=== PATIENT | male | born 1960 | race Two or more races ===

== ENCOUNTER → 2016-09-08 | Outpatient (CLI) | payer MEDICAID ==
[~2016-09-08] MED LIST: ALDACTONE25 MG PO; ANTACID ULTRA400 MG PO; APRESOLINE50 MG PO; ASPIRIN LO-DOSE81 MG PO; BRILINTA90 MG PO; CORDARONE,PACE200 MG PO; COREG12.5 MG PO; COREG25 MG PO; COZAAR50 MG PO; GLUCOSE4 GM PO; GLUCOTROL5 MG PO; IMDUR30 MG PO; K-TAB ER20 MEQ PO; KEPPRA500 MG PO; LASIX40 MG PO; LEVEMIR FL100 UNIT/1 SUB-Q; LEVEMIR100 UNIT/1 SUB-Q; LIPITOR20 M1 PO; LOPRESSOR50 MG PO; MAG-OX-400(241400 MG PO; MIRALAX17 GM PO; NORCO 5-325 TA1 EACH PO; NORVASC10 MG PO; NORVASC5 MG PO; NOVOLOG100 UNIT/M SUB-Q; ONE TOUCH LANC1 EACH; ONE TOUCH VERI1 EACH; PEPCID20 MG PO; PRAVACHOL40 MG PO; PRINIVIL (ZESTR20 MG PO; PRINIVIL (ZESTRI5 MG PO; PROTONIX40 MG PO; TYLENOL325 MG PO; ZANTAC150 MG PO
[2016-09-08 13:50] LABS: ALBUMIN 3.8 gm/dL (3.5-5.0); CALCIUM 8.6 mg/dL (8.5-10.5); CREATININE 2.9 mg/dL (0.6-1.3); POTASSIUM 4.3 mMol/L (3.7-5.1); TOTAL BILIRUBIN 0.3 mg/dL (0.0-1.5); TOTAL PROTEIN 7.7 g/dL (6.0-8.4)
[2016-09-08 14:15] LABS: ANION GAP 15.3 (10.0-19.0)
== END | disposition disaster alternative care site (69) ==
LOC: LNHI 13:28
PROVIDERS: Internal Medicine Interventional Cardiology
DX: I10 Essential (primary) hypertension (principal); N17.9 Acute kidney failure, unspecified; E78.4 Other hyperlipidemia; I25.10 Atherosclerotic heart disease of native coronary artery without angina pectoris

== ENCOUNTER 2016-11-10 19:17 | Inpatient (IN) | payer MEDICAID ==
[~2016-11-10] VITALS: Ht 157.5 cm; Wt 81.4 kg
--- NOTE | ~2016-11-10 | CON ---
PATIENT'S NAME: JAEL ROBLES [facility] AGE: 56 Y [address] ROOM: [address] [place], [place] [address] LOCATION: GPCU ADMIT DATE: 11/10/2016 Consultation DISCHARGE DATE: FAMILY PHYSICIAN: PHYSICIAN, UNKNOWN ATTENDING PHYSICIAN: TIMO FLORES REFERRING PHYSICIAN: Rolando Andrew MD REFERRING PHYSICIAN: Timo Flores MD REASON FOR CONSULT: Chest pain. HISTORY OF PRESENT ILLNESS: This is a very pleasant male who presents to the emergency room after being sent here from the [facility] due to abnormal lab work. His creatinine was reported at 7.8 with a BUN of 150, and his potassium was 5.7. In addition, he was complaining of mid chest discomfort which he states started about 3 days ago. He states that it is intermittent, not worse with exertion. He carries a history of avu-DT-fpqtylfgi SD and was seen by Dr. Lowery in March. His troponin at that time was greater than 200 x2 values, but because he had sustained a subdural hematoma and underwent a right-sided ventriculostomy to monitor intracranial pressures, he was not studied, was placed on appropriate medication, and instructed to follow up as an outpatient. He did not follow up with Cardiology, nor did he follow up with Neurology. He has reported or admitted that he has been taking a nitroglycerin any time he has chest discomfort and recently ran out of the nitroglycerin. He has not been complaining of increased shortness of breath. He denied orthopnea, PND, or pedal edema. There was no report of palpitations, lightheadedness, or dizziness. His troponin-I now is 0.040 and did increase to 0.146 with a CK-MB of 5.2 to 5.7. These numbers are noted to be in the setting of elevated creatinine. His EKG was showing a regular sinus rhythm with changes noted when compared to the March EKG in the aVL, aVF, V4, V5, and V6 including T-wave inversion and ST depression. He does have a history of LVH as well. PAST MEDICAL HISTORY: 1. Diabetes mellitus. 2. Chronic kidney disease. 3. Essential hypertension. 4. History of gtb-UN-cjmcyvglj myocardial infarction. 5. Hyperlipidemia. 6. History of subdural hematoma, March 2016, post ventriculostomy. 7. Chronic diastolic congestive heart failure with a normal EF. 8. Pancreatitis. [facility] 56 Y [address] ROOM: [id number] [place], [place] [address] LOCATION[facility] ADMIT DATE: 11/10/2016 Consultation DISCHARGE DATE: FAMILY PHYSICIAN: PHYSICIAN, UNKNOWN ATTENDING PHYSICIAN: TIMO FLORES ALLERGIES: NONE TO MEDICATIONS. HOME MEDICATIONS: Difficult to decipher as he does not remember what his medications are, but per [facility], his home medications are: 1. Tylenol 325 mg every 6 hours. 2. Amlodipine 10 mg daily. 3. Atorvastatin 20 mg daily. 4. Glucose 16 mg p.o. for hypoglycemia. 5. Furosemide 40 mg daily. 6. NovoLog insulin 10 units subcu t.i.d. per FlexPen. 7. Levemir 28 units daily. 8. Isosorbide 30 mg every day. 9. Keppra 500 mg b.i.d. 10. Magnesium oxide 400 mg every day. 11. Metoprolol 75 mg b.i.d. 12. Protonix 40 mg every day. SOCIAL HISTORY: He quit smoking in 2014. He smoked 2 packs of cigarettes a day for 40 years. He admits to using marijuana weekly. He does not drink alcohol. FAMILY HISTORY: Father had lung cancer and is . He had an uncle who had a stroke. REVIEW OF SYSTEMS: Per HPI. HEAD: No history of headache. EYES: No blurred vision or double vision. EARS: No problems with hearing. NOSE: No epistaxis or rhinorrhea. MOUTH: No gingival bleeding. THROAT: Denies sore throat, hoarseness, or difficulty swallowing. PULMONARY: Denies cough. GASTROINTESTINAL: Negative for nausea, vomiting, or diarrhea. GENITOURINARY: Positive for acute on chronic kidney failure. MUSCULOSKELETAL: No complaints of arthralgias or myalgias. NEUROLOGIC: Denies numbness, tingling, or feeling off-balance. PSYCHIATRIC: No complaints of depression. PHYSICAL EXAMINATION: GENERAL: His height is 5 feet 2 inches. He weighs 177 pounds with a BMI of 32.4. He is alert and oriented. SKIN: Warm, dry, and pink. [facility]GE: 56 Y [address] ROOM: [address] [address] LOCATION: [facility] ADMIT DATE: 11/10/2016 Consultation DISCHARGE DATE: FAMILY PHYSICIAN: PHYSICIAN, UNKNOWN ATTENDING PHYSICIAN: TIMO FLORES HEENT: Sclerae are clear. There is no xanthoma noted. NECK: Soft and supple. JVD is flat. No carotid bruits. RESPIRATORY: Lung sounds are clear. CARDIOVASCULAR: Regular with normal S1 and S2. EKG is as noted in HPI. ABDOMEN: Soft and nontender. EXTREMITIES: No peripheral edema. No clubbing. No cyanosis. Distal pulses are 2+/4. NEUROLOGICAL: He is alert, has symmetrical facial expression. His gait was not assessed. LABORATORY DATA: Labs today: White count 5.7, hemoglobin 12.4, hematocrit 36.4, and platelets are 192. Glucose 197; BUN 130; creatinine 6.2; sodium 148; potassium 4.3, down from 5.7; chloride 118; and CO2 is 19. Hemoglobin A1c is 7.2. Cholesterol 108, triglycerides 170, HDL 30, and LDL was 44. His UA was normal. ASSESSMENT: 1. Elevated cardiac enzymes in the setting of kidney failure. We will see what his echocardiogram shows today. At some point in time, he will need a left heart catheterization. We will discuss starting anticoagulation such as heparin and aspirin with Dr. Andrew after we get the results of his CT scan ruling out any acute bleed. 2. Acute on chronic kidney failure. Nephrology has been called in. 3. Hypertension. His blood pressure currently is 100/50. He is on nitroglycerin. We will continue with his current medications. The assessment and plan, history of present illness, and physical exam are per Dr. Andrew. Dr. Lowery will take over his care on Sunday. ESTELA STAFFORD APRN FOR MD ANDRES FRANKS/katiel /[id number] d: 11/11/16 1612 t: 12/05/16 1336, CONSULTATION REPORT
--- NOTE | ~2016-11-10 | ENPV ---
Vascular Lower Extremity Vein Mapping Procedure Demographics Patient Name THOMAS MOORE, Date of Study 11/22/2016 JAEL Patient Number [id number] Gender Male Date of 1960 Age 56 Visit Number [id number] Height 62 Accession Number [id number] Weight 177 Referring Filiberto Peña DO Interpreting Gutierrez Chen MD Physician Physician Physician Ordering Filiberto Peña Butcher Apprentice Physician DO Weight Guesser Fadumo Issa BS, RT Conclusions Summary Bilateral greater saphenous veins mapped. Branch at the left proximal greater saphenous in the thigh. Branch at the right mid greater saphenous in the thigh. Branches at the proximal greater saphenous in the calf bilaterally. Procedure Type of Study: Veins:Lower Extremity Vein Mapping, Vein Mapping NH. Indications for Study:Vein mapping and Pre-op for vein harvesting. Appropriate Use Criteria:8 Allergies - No known allergies. Patient Status:Routine. Study Location:Inpatient Portable. Technical Quality:Adequate visualization. Risk Factors History of Disease + + + + !Diagnosis !Date !Comments ! + + + + !Hypertension ! ! ! + + + + !Diabetes ! ! ! + + + + - The patient's risk factor(s) include: renal failure , diabetes mellitus, dyslipidemia, treated arterial hypertension and prior [place] . - The patient has a former tobacco history. - The patient's last creatinine was 3 mg/dl. Velocities are measured in cm/s ; Diameters are measured in cm + ++--------++--------+ !Superficial - Great Saphenous Vein !!Right !!Left ! + ++--------++--------+ !Location !!Diameter!!Diameter! + ++--------++--------+ !Sapheno Femoral Junction !!0.5 !!0.33 ! + ++--------++--------+ !GSV High Thigh !!0.26 !!0.26 ! + ++--------++--------+ !GSV Mid Thigh !!0.25 !!0.22 ! + ++--------++--------+ !GSV Low Thigh !!0.23 !!0.25 ! + ++--------++--------+ !GSV Knee !!0.24 !!0.23 ! + ++--------++--------+ !GSV High Calf !!0.15 !!0.18 ! + ++--------++--------+ !GSV Mid Calf !!0.2 !!0.19 ! + ++--------++--------+ !GSV Low Calf !!0.19 !!0.19 ! + ++--------++--------+ !GSV Ankle !!0.23 !!0.2 ! + ++--------++--------+ Signature dtt: WILL MONIQUE dtlana: 11/22/16 1315 Physician Self Edit
--- NOTE | ~2016-11-10 | CATH ---
Cardiac Diagnostic Report Demographics Patient Name THOMAS MOORE Gender Male JAEL Date of 1960 Age 56 year(s) Patient Number [id number] Date of Study 11/20/2016 Visit Number [id number] Room Number G63[address] [place] [id number] Ht 157.48 cm Wt 80.29 kg Referring Lorrie Marshall MD Primary Physician Physician Performing Mackrra Secondary Physician Physician Melany Diagnostic Yerra Assisting Physician Physician Melany Interventional Physician Research Chemical Engineer Physician Findings and Conclusions Diagnostic Findings and Conclusion L Main: Mild distal tapering LAD: Prox/mid 80%, distal 80% Diagonal: ostial 90% Cx: Mid 100% (in stent restenosis) OM1: ostial 50%, mid 70%, distal 80-90% RCA: mid 80%, PLV: ostial 80-90% PDA: 80-90% Ramus: Ostial/Proximal 80-90% Diagnostic Recommendations CABG recommended for triple vessel disease. Dr. De Los Santos notified. Procedure Description The patient was brought to the diagnostic cardiac catheterization-EP laboratory in the fasting, non-sedated state. Informed consent was obtained in the written and verbal form after the risks and benefits were explained. The patient had no further questions and agreed to proceed. The planned puncture-incision site(s) were shaved and prepped with ChloraPrep and draped in the usual sterile manner. Conscious sedation and pain control medications were delivered by a registered nurse under physician guidance. Surface ECG rhythm, blood pressure measurement, and pulse oximetry were monitored throughout the procedure. Arterial access. The right radial arterial access site was infiltrated with lidocaine. The vessel was entered with the Seldinger technique. A sheath was advanced into the vessel and used for catheter placement. Selective left coronary angiography. A catheter was advanced into the left coronary vessel ostium under Fluoroscopic guidance. Contrast was injected by hand. Images were obtained in multiple projections. Selective right coronary angiography. A catheter was advanced into the right coronary vessel ostium under fluoroscopic guidance. Contrast was injected by hand. Images were obtained in multiple projections. Arterial artery hemostasis was achieved. The patient was transferred to a regular nursing floor via cart accompanied by a nurse. The patient left the laboratory in stable condition. Diagnostic Cath Status: Urgent Procedure Procedure Type Diagnostic procedure:Angiography:, Coronary Angios The procedure was explained in detail to the patient. Risks, complications and alternative treatments were reviewed. Written consent was obtained. Medications Reviewed with Patient prior to Procedure. Angiographic Findings Dominance: Right Cardiac Arteries and Lesion Findings LMCA: Normal (0% Stenosis).Mild distal tapering. LAD: Lesion on Prox LAD: Proximal subsection.80% stenosis . Lesion on Mid LAD: Mid subsection.80% stenosis . Lesion on Dist LAD: Distal subsection.90% stenosis . Lesion on 1st Diag: Ostial.90% stenosis . LCx: There is a previous stent on Mid CX Mid subsection showing occlusion. Lesion on 1st Ob Hazel: Mid subsection.70% stenosis . Lesion on 1st Ob Hazel: Distal subsection.90% stenosis . Comments:diffuse. RCA: Lesion on Mid RCA: Mid subsection.80% stenosis . Lesion on 1st RPL: Ostial.90% stenosis . Lesion on R PDA: 90% stenosis . Ramus: Lesion on Ramus: Proximal subsection.90% stenosis . Lesion on Ramus: Ostial.90% stenosis . Coronary Tree Procedure Data Procedure Date Date: 11/20/2016Start: 09:02 AMEnd: 09:30 AM Entry Locations - Retrograde Percutaneous access was performed through the Right Radial artery (Primary location). A 6 Fr sheath was inserted. Hemostasis was successfully obtained using Mechanical Compression. Closure Comments: 13 ml's in radial band placed by Suleman Hickey. Procedure Medications Order and Administration + + + + + !Time !Medication !Dosage !Route ! + + + + + !11/20/2016 09:10 AM !Radial Verapamil !1.25 mg !I.A. ! + + + + + !11/20/2016 09:10 AM !Radial Nitroglycerin !200 mcg !I.A. ! + + + + + !11/20/2016 09:11 AM !Heparin (ACC_3) !3500 units !I.V. bolus ! + + + + + !11/20/2016 09:10 AM !Versed !1 mg !I.V. ! + + + + + !11/20/2016 09:10 AM !Fentanyl !50 mcg !I.V. ! + + + + + Devices Used - A5 Fr. BS JR 4 Diag. Catheterwas used for:Right coronary angiography. - A5 Fr. BS JL 3.5 Diag. Catheterwas used for:Left coronary angiography. Contrast Material - Isovue 40854 ml Fluoroscopy Time: Diagnostic: 3:24 minutes. Total: 3:24 minutes. Fluoroscopy Dose: Diagnostic: 866 mGy. Total: 866 mGy. Estimated Blood Loss: 10 ml. Medical History Performed Procedures and Imaging Results - No ACC stress or imaging studies were performed. History of Disease + + + + !Diagnosis !Date !Comments ! + + + + !Hypertension ! ! ! + + + + !Diabetes ! ! ! + + + + Allergies - No known allergies. Risk Factors The patient risk factors include:treated hypercholesterolemia, treated hypertension, diabetes mellitus, last creatinine: 3 mg/dl, creatinine clearance: 30.48 ml/min, dyslipidemia, renal failure, former tobacco use and prior OR . Admission Data Admission Date: 11/10/2016 Admission Time: 09:21 PM Admit Source: Emergency department Insurance Payors: Medicaid and None. Admission Medications + +------+------+ +---------+ + + !Medication !Dosage!Times !Last !Last !Administered !Comments ! ! ! !Per !Delivery !Delivery ! ! ! ! ! !Day !Date !Time ! ! ! + +------+------+ +---------+ + + !Aspirin ! ! !11/20/2016 !12:00 AM !Yes ! ! !(any) ! ! ! ! ! ! ! + +------+------+ +---------+ + + !Statin (any)! ! !11/20/2016 !12:00 AM !Yes ! ! + +------+------+ +---------+ + + !Clopidogrel ! ! ! ! !Yes ! ! + +------+------+ +---------+ + + !Nitrates (iv! ! !11/20/2016 !12:00 AM !Yes ! ! !or buccal) ! ! ! ! ! ! ! + +------+------+ +---------+ + + !Beta Álvaro! ! ! ! !Yes ! ! !(any) ! ! ! ! ! ! ! + +------+------+ +---------+ + + Clinical Evaluation Leading to Procedure - The patient's CAD presentation was assessed as: Non-STEMI. - Anti-anginal medications were prescribed during the past two weeks. The medications are: Beta Blockers, Ca channel Blockers and Long Acting Nitrates. Hemodynamics Condition: Rest O2 Consumption: Estimated: 218.36Heart Rate: 77 bpm Pressures (mmHg) +-----+ + !Site !Pressure ! +-----+ + !AO !156/92 (118) ! +-----+ + Shunts Oxygen Values O2 Capacity 144.16 O2 Consumption 218.36 Signatures dtt: MELANY ROMERO dtd: 11/20/16 0902 Physician Self Edit
--- NOTE | ~2016-11-10 | HP ---
PATIENT'S NAME: JAEL ROBLES [facility] AGE: 56 Y [address] ROOM: [address] [place], [place] [address] LOCATION: GPCU ADMIT DATE: 11/10/2016 History & Physical DISCHARGE DATE: FAMILY PHYSICIAN: PHYSICIAN, UNKNOWN ATTENDING PHYSICIAN: CHRIS FLORES DATE OF SERVICE: CHIEF COMPLAINT: On and off chest pain and MARGRET with hyperkalemia and decreased urine output. HISTORY OF PRESENT ILLNESS: This is a 56-year-old Kazakh speaking male who was discharged from our hospital back in March 2016 with right subdural hematoma status post ventriculostomy by Dr. Rodríguez as well as uncontrolled diabetes type 2 with DKA and uncontrolled hypertension, and also found to have NSTEMI, treated medically without heparin due to subdural hematoma at that time. When the patient was discharged, the patient was supposed to follow up with Cardiology and also Neurosurgery to repeat ct head and see if suitable for cardiac cath; however, due to lack of medical insurance, patient lost in followup. Instead, he has been going to [facility] clinics and he said he was given multiple medications and has been compliant most of the time. He just keeps taking them but does not really know which ones are they. The reason why he came here is because he has been noticing decreased urine output in the last few weeks to months with normal appetite and his urine has been concentrated like tea color. In addition, he has been having this substernal chest pain on and off, sometimes at rest, sometimes on exertion, a few months after he was discharged in March 2016. He says that he takes some tablets under the tongue, I suppose it was nitroglycerin, and he gets good relief of pain. Today, chest pain happened again around the morning at rest and sometimes on exertion on and off, but he ran out of the nitroglycerin sublingual tablets, so the chest pain persisted, intensity about 4 to 5 out of 10, localized without radiation. Today, the outpatient lab found him to have severe renal failure with hyperkalemia. Previously, the patient was supposed to see a manager part, but due lack of medical insurance, he did not take the initiative to look for a manager part. Today, due to hyperkalemia and MARGRET and chest pain, the patient was referred here for further care. REVIEW OF SYSTEMS: As mentioned in the history of present illness. All other systems were PATIENT'S NAME: THOMAS MOORE [facility] AGE: 56 Y [address] ROOM: [address] [address] [facility] ADMIT DATE: 11/10/2016 History & Physical DISCHARGE DATE: FAMILY PHYSICIAN: PHYSICIAN, UNKNOWN ATTENDING PHYSICIAN: CHRIS FLORES reviewed and they were negative except for those mentioned in the history of present illness. PAST MEDICAL HISTORY: 1. Hypertension. 2. Diabetes type 2. 3. Hyperlipidemia. 4. NSTEMI back in March 2016, treated medically without cardiac cath and without heparin drip due to history of subdural hematoma at that time. The patient was supposed to follow up with our construction recruiter as an outpatient, but he lost in followup due to his lack of medical insurance. 5. History of subdural hematoma status post ventriculostomy in March 2016. 6. History of chronic diastolic congestive heart failure. ALLERGIES: NONE. HOME MEDICATIONS: The patient does not remember. The list has to be reconciled in the morning by the medical staff before it can be addressed. SOCIAL HISTORY: The patient was a former cigarette smoker; he quit about 2 years ago; he used to smoke about 2 packs per day for 40 years. He denies any illegal drug except occasional marijuana usually once a week. He is a social alcohol drinker, but he denies any alcohol abuse or alcohol withdrawal. PAST SURGICAL HISTORY: Status post right foot surgery in the past due to fracture. FAMILY HISTORY: Father from lung cancer; he was a heavy smoker. Mother had an intracranial hemorrhage. PHYSICAL EXAMINATION: VITAL SIGNS: At the time of evaluation, temperature was 98, heart rate was 68, blood pressure was 134/76, saturation was 98% on room air, and respiration was 14. GENERAL APPEARANCE: The patient is alert and oriented x3. Currently in no acute distress. A very pleasant male. HEENT: Pupils are equally round and reactive to light. Extraocular muscles intact. Anicteric sclerae. Nasal turbinates are normal bilaterally. Dry oral mucosa. NECK: No JVD. CARDIOVASCULAR: Regular rate and rhythm. Normal S1, S2. No murmur, no rubs, PATIENT'S NAME: THOMAS MOORE [facility] AGE: 56 Y [address] ROOM: [id number] [place], [place] [address] [facility] ADMIT DATE: 11/10/2016 History & Physical DISCHARGE DATE: FAMILY PHYSICIAN: PHYSICIAN, UNKNOWN ATTENDING PHYSICIAN: CHRIS FLORES no gallops. RESPIRATORY: Clear to auscultation. No rales, no rhonchi, no wheezing, no crackles. ABDOMEN: Soft, nontender, nondistended, bowel sounds present, and no mass. EXTREMITIES: No edema in the upper or lower extremities. SKIN: No ulcer, no rash, no cyanosis. NEUROLOGIC: Grossly nonfocal. LABORATORY DATA: Troponin 0.040. White blood cells 5.7, hemoglobin 12.4, hematocrit 36.4, platelet 192. Glucose 290. BUN 150, creatinine was 7.8, sodium 139, potassium 5.7, chloride 112, CO2 of 10, calcium 8.2, total protein 7.6, albumin 3.5, AST 9, ALT 25, alkaline phosphatase 92, total bilirubin 0.2, anion gap 22.7, globulin 4.1. Urinalysis negative for UTI. GFR 7. Alcohol level less than 0.01. IMAGING STUDIES: EKG on admission on November 10, 2016, at 8:20 p.m. shows findings of left ventricular hypertrophy, heart rate of 70. Repeat EKG on November 11, 2016, at 12:36 a.m. again shows findings of left ventricular hypertrophy, heart rate of 69, sinus rhythm. The previously done was also sinus rhythm, heart rate of 70. Compared to the prior EKG back on March 31, 2016, shows sinus rhythm, heart rate of 75 beats per minute, with QTc of 489 milliseconds, QRS 108 milliseconds, SD 182 milliseconds. Compared to the prior EKG on May 08, 2016, at 12:56 a.m. shows findings of left ventricular hypertrophy, heart rate of 67. EMERGENCY ROOM COURSE: In the emergency room, the patient was given 1 L of normal saline bolus with an aspirin 325 mg 1 dose. A Arciniega was placed and drained out about 500 mL of a concentrated looking urine. ASSESSMENT AND PLAN: 1. Regarding his anion gap metabolic acidosis secondary to MARGRET on CKD 3: When he was discharged from the hospital back in March 2016, GFR was 45 and creatinine was 1.6. Today, creatinine on admission was 7.8 and GFR was 7. This could be from the prerenal hypovolemia due to elevation in BUN and creatinine as well as PATIENT'S NAME: JAEL ROBLES [facility] AGE: 56 Y [address] ROOM: [id number] [place], [place] [address] [facility] ADMIT DATE: 11/10/2016 History & Physical DISCHARGE DATE: FAMILY PHYSICIAN: PHYSICIAN, UNKNOWN ATTENDING PHYSICIAN: CHRIS FLORES from long-standing diabetes and long-standing hypertension, which both are poorly controlled. EKG showed left ventricular hypertrophy. The plan will be to consult Nephrology in the morning. IV fluids for hydration. I will put a Arciniega catheter to get strict urine output. Get a complete abdominal ultrasound in the morning looking for hydronephrosis. I will also push sodium bicarbonate amps of 50 mEq 3 doses given that his bicarb is 10. I will get sodium bicarbonate tablets, 1 tablet 3 times a day of 650 mg. I will get an ABG right now. If ABG shows that the patient is acidemic, less than 7, I will start him on IV sodium bicarbonate drip. Due to the shortage of the IV solution sodium bicarbonate, right now, I will use the amps push and then oral tablets unless the pH is acidemic less than 7, then we will do the IV sodium bicarbonate drip. For the hyperkalemia, I will get an EKG right now looking for hyperkalemia changes, and to prevent delay, I will give 1 g of IV calcium gluconate and also with IV insulin and IV dextrose and also p.o. Kayexalate. We will be checking another renal panel to see if more treatment is needed for the hyperkalemia. Increase oral intake. We will also check urine electrolytes. Further plan will depend on clinical course. 2. Regarding his hyperkalemia: Refer to #1 for the details. If the patient needs more Kayexalate, I will use Veltassa instead. 3. Regarding his chest pain: I will cycle cardiac enzymes every 6 hours and also get a Cardiology consult in the morning. I will put him n.p.o., get an echo in the morning, and I will get a CT of the brain without contrast to make sure that there is no more residual subdural hematoma in case we need to start him on IV heparin drip per ACS protocol. In addition, we will continue aspirin daily in the morning unless there is still some residual head bleed on CT of the head. In addition, start him on the Lipitor and also on Lopressor and also on nitroglycerin drip titrate for chest pain relief and also on IV morphine p.r.n. and p.o. Ativan p.r.n. EKG in the morning again. Currently, chest pain has gone down to 1/10 intensity. 4. Regarding his history of chronic diastolic congestive heart failure: He is on room air, denies any shortness of breath. I will check a proBNP. The patient is hypovolemic on exam and lab. For now, I will give him IV hydration and avoid diuretics. Further plan depends on clinical course. 5. Regarding his hypertension: Currently, blood pressure is not too bad, it is in the 130s systolic. Continue IV hydration. Avoid diuretics. Avoid ADEEL inhibitors or ARBs. Avoid all nephrotoxic agents. 6. Regarding his diabetes type 2: Check A1c. I will start him on the subcu Levemir 5 units b.i.d. and also put him on the sliding scale low dose while he is eating. I will put him on the subcu Regular insulin q.4 hours mild dose while he is NPO and titrate as needed. PATIENT'S NAME: THOMAS MOORE [facility] AGE: 56 Y [address] ROOM: [place] [address] [facility] ADMIT DATE: 11/10/2016 History & Physical DISCHARGE DATE: FAMILY PHYSICIAN: PHYSICIAN, UNKNOWN ATTENDING PHYSICIAN: CHRIS FLORES 7. Regarding his hyperlipidemia: Continue Lipitor high dose 80 mg daily. 8. He is a full code. 9. Deep vein thrombosis prophylaxis: For now, would wait for the CT of the head first before deciding. Time spent in care on the day of admission 50 minutes where 15 minutes was spent on chart review and the remainder of the time was spent on interview and physical examination and also on counseling. The counseling also includes going over the plan of care with the patient and also addressing all the questions and concerns the patient had, and also I went over the plan of care in detail with the nurse. I answered all the questions to their satisfaction. Further plan will depend on clinical course. MD DEBBI ROBLERO/scott /[id number] D: [id number] T: [id number] HISTORY & PHYSICAL
--- NOTE | ~2016-11-10 | DS ---
PATIENT'S NAME: JAEL ROBLES [facility] AGE: 56 Y [address] ROOM: [address] [place], [place] [address] LOCATION: GPCU ADMIT DATE: 11/10/2016 Discharge Summary DISCHARGE DATE: 11/30/2016 FAMILY PHYSICIAN: Physician, Unknown ATTENDING PHYSICIAN: Timo Jarrett FINAL DIAGNOSES: 1. Acute coronary syndrome. 2. Acute on chronic diastolic congestive heart failure. 3. Acute kidney injury on chronic kidney disease. 4. Hyperkalemia secondary to acute kidney injury. 5. Diabetes mellitus, type 2. 6. Essential hypertension. 7. Metabolic acidosis secondary to acute kidney injury. 8. History of seizure. 9. Dyslipidemia. 10. Anemia of chronic disease. 11. Coronary artery disease. PROCEDURES: 1. He had a left heart catheterization by Dr. Lowery on November 20. 2. He had a seven-vessel CABG with Dr. De Los Santos on November 23, 2016. HISTORY OF PRESENT ILLNESS: Please see the history and physical dictated by Dr. Jarrett for details of admission. In short, the patient presented to the emergency room after [facility] with abnormal laboratory. He was noted to have a creatinine of 7.8, and was noted to be acidotic. He also at that time did state that he had been having mild chest pain that had started three days prior to admission. LABORATORY DATA: On admission, sodium 148 most prior to discharge was 139; potassium on admission was 5.7, it did come down and remained relatively stable, it did get elevated again on November 23 and was up to 6.4, most prior to discharge was 4.7; chloride on admission was 112, got as high as 118, and at discharge is 108; BUN on admission was 150, it did go down and at discharge was 44; and creatinine on admission was 7.8, at discharge was 3.3, in the ten days prior to discharge, it was in the 3 to 3.8 range. Cholesterol was 108, HDL was 30, and LDL was 44. Troponin on admission was 140 and did decline. His total iron-binding capacity was 213 and iron was 61. Hemoglobin A1c was 7.2. Parathyroid intact was 145.9. White blood cell count on admission was 5.7 with a hemoglobin of 12.4, hematocrit of 36.4, and platelet count of 192. Hemoglobin during the hospital stay was predominantly in the 10 range; on the , it got as low as 8.4, and most prior to discharge was 9.7. The c-ANCA and p-ANCA were negative. Urinalysis on admission with 100 protein and 50 glucose. PATIENT'S NAME: JAEL ROBLES [facility] AGE: 56 Y [address] ROOM: [place] [address] LOCATION: GPCU ADMIT DATE: 11/10/2016 Discharge Summary DISCHARGE DATE: 11/30/2016 FAMILY PHYSICIAN: Physician, Unknown ATTENDING PHYSICIAN: Timo Jarrett DIAGNOSTIC STUDIES: CT scan of the head on admission was negative for bleed. Ultrasound of the kidney on admission showed that he had normal size kidneys. Chest x-rays were followed throughout the hospital stay. CARDIOVASCULAR DATA: An echocardiogram done on admission showed that his ejection fraction was 50% to 55%. He had meyvyuyq-kb-rxylbe concentric left ventricular hypertrophy. He had vrgr-cx-ehfodwcn aortic regurgitation. The valve was moderately sclerotic. Carotid Dopplers did not show any significant blockage. Pulmonary function tests showed normal lung function. HOSPITAL COURSE: The patient was admitted with the diagnoses of acute renal failure with hyperkalemia and chest pain. He was given aggressive IV hydration. He was given IV calcium, started on Lopressor, and also given sodium bicarbonate. A CT scan of the head was done to rule out a stroke. The patient was given IV nitroglycerin to help control the chest pain. Cardiology was consulted to see the patient. The patient was started on Levemir and sliding-scale insulin. The question was whether this is a non-STEMI. It was felt that this was an acute coronary syndrome. Nephrology was asked to see him. They were familiar with him from previous hospitalization. His kidney function and electrolytes did improve. It was felt that he needed a heart catheterization, but the thought was that they would wait for a while for his kidney function to recover. The plan was for this to be done on November 20. Nephrology did do studies to evaluate for vasculitis. His kidney function was monitored and maximized. Neurology was asked to see him because of his history of subdural hematoma bout and long-term anticoagulation. The patient did overall improve his kidney function. His creatinine did get down in the 2 to 3 range. His blood pressures did come under better control. His blood sugars were controlled as well. The patient was started on Plavix once he was cleared by Neurology. The patient did go to the blood and plasma laboratory assistant on the . He was pre-dosed with Mucomyst. Please see Dr. Lowery's blood and plasma laboratory assistant report. At that time, it was determined that he did need to have a bypass. Dr. De Los Santos did see him. There were a few days between catheterization and surgery in order to monitor the kidney function and to make sure everything was stable. The patient was taken to the OR on the for bypass. Please see the note dictated by Dr. De Los Santos for details. Postoperatively, he was in the ICU for approximately 36 hours, and then he was transferred to floor. He was put on the routine medications of amiodarone and was given IV insulin to control his blood sugars. We were able to take him PATIENT'S NAME: AILYN ROBLESO [facility] AGE: 56 Y [address] ROOM: [place] [address] LOCATION: GPCU ADMIT DATE: 11/10/2016 Discharge Summary DISCHARGE DATE: 11/30/2016 FAMILY PHYSICIAN: , Unknown ATTENDING PHYSICIAN: Timo Jarrett off the IV insulin and started him on oral medications. He continued to improve. His kidney function stabilized and it was felt that he was stable for discharge. During the hospital stay, we did do a significant amount of work with his diabetes, and the diabetic educators did work with him. It was felt that he was stable for discharge. DISCHARGE INSTRUCTIONS: Have a diabetic renal diet. He is to have sternal precautions. See Dr. Mcgregor in seven to ten days; Dr. Lowery and Dr. De Los Santos on December 14. He was advised to do no pulling, pushing, or lifting greater than ten pounds until January 04. Cardiac Rehab will contact him, and he was told that he could shower. MEDICATIONS: 1. Lasix 40 mg daily. 2. Atorvastatin 20 mg at bedtime. 3. Magnesium oxide 400 mg daily. 4. Tylenol 650 mg every six hours. 5. Aspirin 81 mg daily. 6. Coreg 12.5 mg twice daily. 7. Amiodarone 200 mg twice daily. 8. Amlodipine 5 mg daily. 9. NovoLog insulin 4 units subcutaneously three times daily with meals. 10. Levemir 18 units at bedtime. 11. Keppra 500 mg twice daily. 12. MiraLAX 17 g at bedtime. 13. [place] 5/325 one every 4 hours as needed. He is to check his sugars four times daily. OVERALL PROGNOSIS AT DISCHARGE: Guarded. There was some concern about ability to continue to get medications and for followup. GAY HOUGH MD LAW/modl /[id number] CC: MD Melany Guardado MD [facility] 56 [facility] [address] ROOM: [place] [address] [facility] AD[facility] DATE: 11/10/2016 Discharge Summary DISCHARGE DATE: 11/30/2016 FAMILY PHYSICIAN: Physician, Unknown ATTENDING PHYSICIAN: Timo Jarrett DO d: 12/01/16 0352 t: 12/04/16 1426, DISCHARGE SUMMARY
--- NOTE | ~2016-11-10 | CON ---
[facility]GE[facility] 56 Y [address] ROOM: [place] [address] LOCATION: GPCU ADMIT DATE: 11/10/2016 Consultation DISCHARGE DATE: FAMILY PHYSICIAN: PHYSICIAN, UNKNOWN ATTENDING PHYSICIAN: TIMO FLORES DATE OF CONSULTATION: 11/11/2016 REFERRING PHYSICIAN: Rolando Andrew MD NEPHROLOGY CONSULTATION NOTE REQUESTING PHYSICIAN: Timo Flores MD REASON FOR CONSULTATION: Elevated BUN and creatinine. HISTORY OF PRESENT ILLNESS: The patient is a 56-year-old, male with a history of diabetes for several years. He denies any retinopathy or neuropathy. He also has a history of hypertension. He was admitted to the hospital in March with a rzb-XO-cihlyuewl NH and at that time, his creatinine was between 1.3 and 1.6. His creatinine went up to 2.9 in August of 2016. He got admitted to the hospital yesterday with chest pain, and patient also had poor appetite for several days. Yesterday, his creatinine was up to 7.8. He did have hydration overnight and now the creatinine is 6.2. I have been asked to see him for a Nephrology consultation because of his elevated creatinine. The patient denies taking any nonsteroidals or PACKER-2 inhibitors. Outpatient medications does include lisinopril 20 mg a day and Lasix 80 mg a day. REVIEW OF SYSTEMS: GENERAL: He denies any fever or chills. HEENT: He denies any sore throat or sinus congestion. CARDIOVASCULAR: He has some chest pain. RESPIRATORY: Denies shortness of breath, cough, or wheezing. GASTROINTESTINAL: Denies any abdominal pain. He has poor appetite. GENITOURINARY: He noticed decreased urine output. No dysuria. MUSCULOSKELETAL: Denies any joint pain or swelling. SKIN: Denies any rash or pruritus. ALLERGIC/IMMUNOLOGIC: Denies any allergies or hay fever. LYMPHATIC/HEMATOLOGIC: Denies any lymph node enlargement or easy bruising. Denies any heat or cold intolerance. PSYCHIATRIC: Denies any sadness, crying spells, poor concentration, or panic attacks. [facility] AGE: 56 Y [address] ROOM: [place] [address] LOCATION: GPCU ADMIT DATE: 11/10/2016 Consultation DISCHARGE DATE: FAMILY PHYSICIAN: PHYSICIAN, UNKNOWN ATTENDING PHYSICIAN: TIMO FLORES ALLERGIES: NO KNOWN DRUG ALLERGIES. CURRENT MEDICATIONS: 1. Lasix 80 mg a day. 2. Lisinopril 20 mg a day. 3. Spironolactone 25 mg twice a day. 4. Carvedilol 6.25 mg twice a day. PAST MEDICAL HISTORY: 1. Diabetes mellitus. 2. Hyperlipidemia. 3. Hypertension. 4. Uox-YD-egxnlikbq NH. 5. Subdural hematoma. 6. Chronic diastolic dysfunction of the heart. PAST SURGICAL HISTORY: Status post right foot surgery due to fracture. SOCIAL HISTORY: The patient lives at home in [place]. He has 80 pack-year history of smoking. Quit smoking about two years ago. Denies any illegal drug use. 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 FAMILY HISTORY: No family history of kidney disease or dialysis. PHYSICAL EXAMINATION: GENERAL APPEARANCE: A 56-year-old, male, sitting on the hospital bed not in acute distress. VITAL SIGNS: Temperature 98.4, pulse 76, and systolic blood pressure 129 and diastolic 67. HEENT: Head is normocephalic. Pupils are round and equal. Normal eyelid and conjunctivae. Oral cavity clear. Moist mucosa. NECK: Trachea is central. No thyromegaly. Unable to evaluate jugular venous pulsation. HEART: Sounds are audible in all the areas without any gallop or murmur. There is no pericardial rub. Pulse . LUNGS: Bilaterally clear to auscultate. No intercostal retraction. ABDOMEN: Obese, soft, and nontender. Cannot palpate any liver or spleen. EXTREMITIES: He has no clubbing or cyanosis. NEUROLOGIC: He is alert and oriented x3 and grossly nonfocal. MUSCULOSKELETAL: No joint swelling or tenderness. SKIN: No sign of vasculitis. PATIENT'S NAME: THOMAS MOORE [facility] AGE: 56 Y [address] ROOM: [address] [place], [place] [address] LOCATION: GPCU ADMIT DATE: 11/10/2016 Consultation DISCHARGE DATE: FAMILY PHYSICIAN: PHYSICIAN, UNKNOWN ATTENDING PHYSICIAN: TIMO FLORES LYMPHATICS: Did not examine lymphatics. HIGHER PSYCHIATRIC FUNCTION: Examined through the patient's grandson and he seems to have good memory and speech. LABORATORY DATA: WBC 5.7, hemoglobin 12.5, hematocrit 36.4, and platelet count 192 . Glucose 197, BUN of 130, creatinine of 6.2, sodium 148, potassium 4.8, chloride 118, bicarbonate of 19, calcium 7.9, and phosphorus was 6.0. ASSESSMENT: 1. Acute on chronic kidney injury. The patient had a creatinine of 1.2 to 1.6 in March 2016 and went up to 2.9 in August of 2016. The patient may have a background of diabetic nephropathy. 2. Mild hypernatremia. 3. History of hyperkalemia. 4. Metabolic acidosis. 5. Anion gap acidosis. 6. Diabetes mellitus. 7. Hyperphosphatemia. PLAN: Creatinine has improved from 7.8 to 6.2 with hydration, but I cannot rule out the possibility of obstructive uropathy. I will repeat his renal ultrasound to make sure that he is not on hydronephrosis. I will decrease his IV fluids and change the fluids to half-normal saline given he is developing hypernatremia. His bicarbonate level has improved to 19. Does have hyperphosphatemia due to diminished glomerular filtration rate. The patient does have urine protein and I am going to check 24-hour urine for protein and immunoelectrophoresis. If he has significant proteinuria, then I will order serologies. Did advise the patient not to take any nonsteroidals or PACKER-2 inhibitors. I will see him every morning with a renal panel. I would like to thank Dr. Flores for allowing me to participate in this patient's care. M MD NAMAN GLEASON/scott /[id number] d: 11/11/16 1641 t: 11/14/16 1106, CONSULTATION REPORT
--- NOTE | ~2016-11-10 | ENPV ---
Carotid Duplex Study Demographics Patient Name THOMAS MOORE, Date of Study 11/20/2016 JAEL Patient Number [id number] Gender Male Date of 1960 Age 56 Visit Number [id number] Height 62 Accession Number [id number] Weight 177 Referring Filiberto Munoz MD Physician Physician Physician Ordering Physician Whip Sawyer Meter Shop Superintendent Fadumo Issa BS, RT Conclusions Summary The right internal carotid artery has mild, 1-39%, plaque and stenosis. The right vertebral artery is present with antegrade flow. The left internal carotid artery has mild, 1-39%, plaque and stenosis. The left vertebral artery is present with antegrade flow. Calcific plaque at the bulb and proximal ICA on the left. Procedure Type of Study: Cerebral:Carotid, Carotid Doppler Bilateral. Indications for Study:Pre-Op CABG. Appropriate Use Criteria:6 Allergies - No known allergies. Patient Status:Routine. Study Location:Inpatient Portable. Technical Quality:Adequate visualization. Risk Factors History of Disease + + + + !Diagnosis !Date !Comments ! + + + + !Hypertension ! ! ! + + + + !Diabetes ! ! ! + + + + - The patient's risk factor(s) include: renal failure , diabetes mellitus, dyslipidemia, treated arterial hypertension and prior ME . - The patient has a former tobacco history. - The patient's last creatinine was 3 mg/dl. Velocities are measured in cm/s ; Diameters are measured in cm Carotid Right Measurements Carotid Left Measurements + +--------+--------+ + + + +--------+ --------+ + + !Location !PSV !EDV !Angle !%Stenosis ! !Location !PSV ! EDV !Angle !%Stenosis ! + +--------+--------+ + + + +--------+ --------+ + + !Prox CCA !75 !8 !60 ! ! !Prox CCA !82 ! 13 !60 ! ! + +--------+--------+ + + + +--------+ --------+ + + !Dist CCA !85 !13 !60 ! ! !Dist CCA !84 ! 19 !60 ! ! + +--------+--------+ + + + +--------+ --------+ + + !Prox ICA !80 !30 !44 ! ! !Prox ICA !107 ! 28 !60 ! ! + +--------+--------+ + + + +--------+ --------+ + + !Dist ICA !44 !18 !60 ! ! !Dist ICA !62 ! 20 !60 ! ! + +--------+--------+ + + + +--------+ --------+ + + !Prox ECA !129 ! !60 ! ! !Prox ECA !108 ! !42 ! ! + +--------+--------+ + + + +--------+ --------+ + + !Vertebral !31 ! !60 ! ! !Vertebral !62 ! !60 ! ! + +--------+--------+ + + + +--------+ --------+ + + !Subclavian !134 ! !60 ! ! !Subclavian !150 ! !60 ! ! + +--------+--------+ + + + +--------+ --------+ + + - There is antegrade vertebral flow noted on the right side. - There is antegrade verte bral flow noted on the left side. - Add'l Measurements:ICAPSV/CCAPSV 1.06.ICAEDV/CCAEDV 3.85. - Add'l Measurements:ICAPS V/CCAPSV 1.3.ICAEDV/CCAEDV 2.15. Signature dtt: WILL MONIQUE dtd: 11/20/16 [facility] Physician Self Edit
--- NOTE | ~2016-11-10 | ER ---
[facility] 56 Y [address] ROOM: [place] [address] LOCATION: GPCU ADMIT DATE: 11/10/2016 ER/Outpatient Report DISCHARGE DATE: FAMILY PHYSICIAN: PHYSICIAN, UNKNOWN ATTENDING PHYSICIAN: CHRIS FLORES HISTORY OF PRESENT ILLNESS: This is a 56-year-old male, who is sent in from [facility] for abnormal lab work. The patient reports that he had some blood work drawn today as a routine and they called him back later and told him that he had to come into the ER. The patient's current complaints are some mid chest pain, which he said it started 3 days ago that is intermittent, not worse with exertion. He has no cough. He also has some nausea, some abdominal pain and back pain. Denies diarrhea, headache, fever, chills, shortness of breath or any other complaints at this time. He states that he has been urinating fine, he feels like he is emptying all the way, it is not particularly dark. He has no other complaints at this time. PAST MEDICAL HISTORY: Includes insulin-dependent diabetes, hypertension, history of alcoholic pancreatitis, history of subdural hematoma, cardiomegaly. SOCIAL HISTORY: He does not use any drugs, but he does smoke occasionally and drinks occasionally too, although he did drink a lot more before. MEDICATIONS: Please see med list. ALLERGIES: NONE. REVIEW OF SYSTEMS: Reviewed by me and negative with the exception of those discussed in HPI. PHYSICAL EXAMINATION: VITAL SIGNS: The patient is 5 feet and 2 inches, weighs 81.9 kilos. Blood pressure 143/79, heart rate 76, respiratory rate 18, temperature is 98.9, saturations are 98% on room air. GENERAL: The patient looks comfortable. He is speaking in full sentences. He is Mongolian-speaking, but he communicates through his daughter at baseline. He does not look uncomfortable at all. He does not look toxic. HEENT: Pupils are equal and reactive to light. Some mild conjunctival injection. NECK: Supple. PATIENT'S NAME: THOMAS MOORE [facility] AGE: 56 Y [address] ROOM: [place] [address] LOCATION: GPCU ADMIT DATE: 11/10/2016 ER/Outpatient Report DISCHARGE DATE: FAMILY PHYSICIAN: PHYSICIAN, UNKNOWN ATTENDING PHYSICIAN: CHRIS FLORES HEART: Regular rate and rhythm at this time. LUNGS: Clear. ABDOMEN: Soft, nontender, nondistended. He has no suprapubic tenderness. No right lower quadrant tenderness. No left lower quadrant tenderness. No right upper quadrant tenderness. No left upper quadrant tenderness. EMERGENCY ROOM COURSE: I reviewed the labs that were done at the [facility]. It appears that what was abnormal was his BUN and creatinine. So, his BUN there was 96 and his creatinine was 5.41. He was also sent to the lab here to have his blood drawn and on that one, his BUN was 115 and his creatinine was 6.3, so we did check some blood work for his chest pain that has been ongoing for 3 days. We gave him 4 baby aspirins and we did an EKG. On my read, he has new T-wave inversions in 1 and aVL and biphasic T-waves in V5-V6. These are new compared to EKGs that were done back in March of this year. There is no ST elevation though, so we checked some lab work. His urine is negative for leukocytes and nitrites, 50 of glucose, 100 of protein, no ketones. So his CBC; white count is 5.7, H and H is 12.4 and 36.4, platelets are 192. Troponin is 0.04. His CMS shows sodium 139, potassium 5.7, chloride 112, CO2 10, anion gap corrected is 17, glucose is 290, BUN is 150, creatinine 7.8, GFR is 7 only. Alcohol is less than 0.01 at this time. I discussed this with Dr. Flores, the hospitalist. The patient will be admitted for new onset renal failure and also for workup of this chest pain. He has new EKG findings which are concerning, although his troponin is negative at this time. We will put him on a nitroglycerin drip. We will also put in a Arciniega check for strict I's and O's. The patient otherwise has no other complaints and feels comfortable. We will admit him in stable condition. IMPRESSION: Renal failure, chest pain. MD ADDISON CRUZ/modl /[id number] d: 11/11/16 0412 t: 11/12/16 0406, OUTPATIENT REPORT
--- NOTE | ~2016-11-10 | OR ---
PATIENT'S NAME: JAEL ROBLES [facility] AGE: 56 Y [address] [id number] [address] LOCATION: GICU ADMIT DATE: 11/10/2016 OR/Procedure Report DISCHARGE DATE: FAMILY PHYSICIAN: PHYSICIAN, UNKNOWN ATTENDING PHYSICIAN: CHRIS FLORES SURGEON: Eddie Garrido MD NEEDLE PUNCH MACHINE OPERATOR HELPER: DATE OF PROCEDURE: 11/23/2016 PROCEDURES: 1. Right radial arterial line. 2. Central venous catheter. 3. Transesophageal echocardiography. INDICATION: The patient has multivessel coronary artery disease undergoing coronary artery bypass grafting. Need for central venous access for vasopressors, volume assessment, [id number] pressure monitoring, and cardiac function. DESCRIPTION OF PROCEDURE: The patient was identified in PIC. Right arm extended out about 90 degrees. The area was cleaned with chlorhexidine 2%, and the radial artery was easily palpated. A 20-gauge arrow catheter was inserted using Seldinger technique with single stick. Bright red pulsatile blood was found on return, and catheter was secured into place. After induction of general anesthesia, the patient was lying supine on operating table in slight Trendelenburg position. Maximal sterile barriers worn all times. The ultrasound used to visualize the internal jugular vein and real-time guidance of the introducer needle. The vein was easily punctured that was small in diameter and revealed dark nonpulsatile blood on return, however, after multiple attempts at internal jugular vein, wire was unable to be passed. This site was then aborted and a left subclavicular catheter was placed. Area was cleaned with chlorhexidine 2%, new drape was placed over the site. With single pass introducer needle returned dark nonpulsatile blood. The skin nicked, dilated, and a 9-Dominican 10 cm catheter was placed over the wire and the wire removed. All ports withdrew, blood flushed easily that was secured in place. Next a pulmonary artery catheter was threaded without complication and secured at about 45 to 48 cm. Sterile dressing applied over top. Chest x-ray ordered in ICU. Next after induction of general anesthesia, transesophageal probe was placed atraumatically. Please see data sheet and saved images for further details. Generally speaking, it showed left ventricle and LVH, good cardiac function about 50% ejection fraction. There is no pericardial effusion noted. There was some mild mitral regurgitation. The aortic valve was trileaflet and sclerotic. Did have some trace aortic regurgitation. No aortic stenosis was noted. PATIENT'S NAME: JAEL ROBLES [facility] AGE: 56 Y [address] [id number] [address] LOCATION: [facility] ADMIT DATE: 11/10/2016 OR/Procedure Report DISCHARGE DATE: FAMILY PHYSICIAN: PHYSICIAN, UNKNOWN ATTENDING PHYSICIAN: CHRIS FLORES Right ventricle has good function. No significant abnormalities were noted in the tricuspid valve. There is no atrial septal defect. No ventricular septal defect. There is mild atherosclerosis in the aortic arch nothing of significance. EDDIE GARRIDO MD JJP/modl /[id number] d: 11/24/1620 t: 11/29/16 1252, OPERATIVE SUMMARY
--- NOTE | ~2016-11-10 | OR ---
PATIENT'S NAME: JAEL ROBLES [facility] AGE: 56 Y [address] ROOM: [address] [place], [place] [address] LOCATION: GPCU ADMIT DATE: 11/10/2016 OR/Procedure Report DISCHARGE DATE: 11/30/2016 FAMILY PHYSICIAN: Physician, Unknown ATTENDING PHYSICIAN: Timo Jarrett SURGEON: Hang De Los Santos DO SENIOR RELATIONSHIP MANAGER: DATE OF PROCEDURE: 11/23/2016 PREOPERATIVE DIAGNOSES: 1. Multivessel coronary artery disease with preserved ejection fraction. 2. Acute on chronic renal failure with chronic kidney disease, stage 3 to 4, poorly controlled diabetes mellitus. POSTOPERATIVE DIAGNOSES: 1. Multivessel coronary artery disease with preserved ejection fraction. 2. Acute on chronic renal failure with chronic kidney disease, stage 3 to 4, poorly controlled diabetes mellitus. PROCEDURES: Coronary artery bypass grafting x7 with left internal mammary artery bypass to the left anterior descending, reverse saphenous vein graft sequential from obtuse marginal to ramus, reverse saphenous vein graft sequential from obtuse marginal to diagonal, reverse saphenous vein graft from posterolateral branch to posterior descending artery. REFERRING PHYSICIAN: Melany Lowery M.D. BRIEF HISTORY: Mr. Francois Reyes is a 56-year-old male with the above-noted diagnosis. He has been brought to the operative suite today after informed consent was obtained for this procedure. He has been worked up by Nephrology, Cardiology, and hospitalist and prepared for surgery. He was sterilely prepped and draped in the usual fashion. A sternal incision was made and the sternum divided in the midline with sternal saw. Concurrently to this, saphenous vein was harvested endoscopically from the lower extremities. Mammary retractor was placed and the left internal mammary artery was identified and then harvested utilizing surgical clips and electrocautery. Prior to its division, the patient was fully heparinized. The mammary was then divided and prepared for bypass. Mammary retractor was removed and a sternal retractor was placed. Cannulation sutures were placed in the ascending aorta and right atrium for bypass and cardioplegia cannulas, and the patient was cannulated and connected to the bypass pump without difficulty. The vein was then prepared for bypass. Cardiopulmonary bypass was now initiated. Heart decompressed nicely. The cross-clamp was applied. Antegrade and retrograde cardioplegia along with topical cold saline was used for cardiac arrest and the heart arrested without difficulty. We identified PATIENT'S NAME: JALE ROBLES [facility] AGE: 56 Y [address] ROOM: [id number] [place], [place] [address] LOCATION: GPCU ADMIT DATE: 11/10/2016 OR/Procedure Report DISCHARGE DATE: 11/30/2016 FAMILY PHYSICIAN: Physician, Unknown ATTENDING PHYSICIAN: Timo Jarrett the posterolateral septal branch and prepared our vein to this in an end-to- side fashion. It was then sized appropriately and another 500 mL of vein graft retrograde cardioplegia was given. We then performed a xivc-eo-rnew anastomosis of this graft to the posterior descending artery and gave another dose of cardioplegia. Doses of cardioplegia were given after each venous distal anastomosis. Sequential from the obtuse marginal, #3 diagonal was then created; another sequential from obtuse marginal #2 to the ramus was now connected; and then finally the left internal mammary artery was anastomosed to the left anterior descending artery. Bulldog was removed from the internal mammary and distal flow was noted in the LAD system. Crossclamp was now removed and partial occlusion clamp was applied. We initiated warm blood via the vein grafts and the retrograde catheter and we began to perform our proximals. We performed our 3 proximal grafts to the ascending aorta utilizing a 4-0 punch and 6-0 Prolene. With these completed, partial occlusion clamp was removed, the vein graft was de-aired, distal flow was given. All distal sites were hemostatic and proximal sites were hemostatic. Two atrial and ventricular temporary pacemaking wires were placed. Atrial pacing at 80 was performed for sinus bradycardia. Ventilations were initiated after removing the retrograde cannula and we weaned from cardiopulmonary bypass without difficulty. We were on 0.2 mcg/kilo of Joseph-Synephrine, otherwise no other inotropic agent was necessary. Three chest tubes were now placed, one left pleural, one posterior pericardial, one anterior mediastinal. Ventricular pacemaking wire was placed. Copious amounts of antibiotic infused saline was used to irrigate the sternum and mediastinum. The sternum was approximated with ZipFix system and then the soft tissues were irrigated again and closed in a layered fashion. All sponge, instrument, and needle counts were correct. The patient was transferred to the intensive care unit in stable condition. DO Maria Antonia REED /[id number] d: 12/04/16 1824 t: 12/04/16 2115, OPERATIVE SUMMARY
--- NOTE | ~2016-11-10 | ECHO ---
Transthoracic Echocardiography Report (TTE) Demographics Patient Name THOMAS MOORE, Date of Study 11/13/2016 JAEL Patient Number [id number] Visit Number [id number] Date of 1960 Room Number G6301 Gender Male Number Age 56 year(s) Referring No PCP Pallet Assembler Jossie Dean RVT, Physician RDCS Physician Interpreting Beverley Mosley Handbag Frames Inspector Physician Supervising Ordering Luiza Espinoza MD, MD/MLP Physician Nurse Stress Order Desk Caller Conclusions Contractility Score Summary Normal Left Ventricular contractility was noted. Summary The estimated left ventricular ejection fraction is 50-55%. Mild basal inferior wall and anterolateral wall hypokinesis Moderate to severe concentric left ventricular hypertrophy. The left atrium is moderately dilated. Moderate mitral annular calcification. Moderate degenerative changes of the MV. Moderate mitral regurgitation by color doppler. The aortic valve is moderately sclerotic. Cannot exclude bicuspid aortic valve There is mild to moderate aortic regurgitation by color Doppler. There is mild aortic stenosis. The peak velocity is 2.2 m/s, the mean gradient is 11 mmHg, and the valve area based on the continuity equation is 1.42 cm2. The ascending aorta appears mildly dilated. The maximum diameter measures 3.7 cm. Procedure Type of Study TTE procedure:2D Echocardiogram. Procedure Date Date: 11/13/2016 Start: 07:49 AM Study Location: Inpatient Portable Technical Quality: Good visualization Indications:Chest pain. Appropriate Use Criteria: 8 Patient Status: Routine Rhythm: NSR HR: 64 bpm BP: 153/74 mmHg M-Mode/2D Measurements LV Diastolic Dimension: 5.44 cm LV Systolic Dimension: 3.61 cm LV Septum Diastolic: 1.97 cm LV PW Diastolic: 1.48 cm AO Root Dimension: 2.7 cm Cardiac Output: 3.92 l/min AV Cusp Separation: 1.3 cm RV Diastolic Dimension: 3.61 cm LA volume: 132 ml LVOT: 2.1 cm RV Base: 4.12 cm LVOT VTI: 17.7 cm RV Mid: 2.49 cm LV Stroke volume: 61.27 ml TAPSE: 2.6 cm TDI-S': 14.8 cm/s Doppler Measurements AV Peak Velocity: 2.17 m/s MV Peak E-Wave: 0.87 m/s AV Peak Gradient: 18.84 mmHg MV Peak A-Wave: 0.74 m/s AV Mean Gradient: 11 mmHg MV E/A Ratio: 1.17 LVOT Peak Velocity: 0.93 m/s MV P1/2t: 104 msec AV P1/2t: 769 msec TR Gradient:18.15 mmHg PV Peak Velocity: 1 m/s Estimated RAP:5 mmHg PV Peak Gradient: 3.98 mmHg Estimated RVSP: 23 mmHg Estimated PASP: 23.15 mmHg E' Septal Velocity: 0.05 m/s A' Septal Velocity: 0.08 m/s E' Lateral Velocity: 0.05 m/s A' Lateral Velocity: 0.09 m/s Findings Left Ventricle Moderate to severe concentric left ventricular hypertrophy. Diastolic function indeterminate due to mitral annular calcification. Right Ventricle Normal right ventricle structure and function. Left Atrium The left atrium is moderately dilated . There is no evidence of patent foramen ovale or atrial septal defect by color Doppler. Right Atrium Normal right atrial size. IVC measures 1.87 cm with inspiratory collapse. Mitral Valve Moderate mitral annular calcification. Moderate degenerative changes of the MV. Moderate mitral regurgitation by color doppler. Aortic Valve The aortic valve is moderately sclerotic. There is mild to moderate aortic regurgitation by color Doppler. There is mild aortic stenosis. The peak velocity is 2.2 m/s, the mean gradient is 11 mmHg, and the valve area based on the continuity equation is 1.42 cm2. Tricuspid Valve Normal tricuspid valve structure and function. Trivial tricuspid regurgitation by color Doppler. Pulmonic Valve Normal pulmonic valve structure and function. Pericardial Effusion No evidence of pericardial effusion. Miscellaneous The ascending aorta appears mildly dilated. The maximum diameter measures 3.7 cm. Pleural Effusion No evidence of pleural effusion. Contractility Score LV regional wall motion:(0-Non visualized 1-Normal 2-Hypokinesis 3-Akinesis 4-Dyskinesis 5-Aneurysm) Signature dtt: SEAN ROMERO dtd: 11/13/16 0749 Physician Self Edit
--- NOTE | ~2016-11-10 | CON ---
PATIENT'S NAME: JAEL ROBLES [facility] AGE: 56 Y [address] ROOM: [address] [address] LOCATION: GPCU ADMIT DATE: 11/10/2016 Consultation DISCHARGE DATE: FAMILY PHYSICIAN: PHYSICIAN, UNKNOWN ATTENDING PHYSICIAN: CHRIS FLORES DATE OF CONSULTATION: 11/20/2016 REFERRING PHYSICIAN: Rolando Andrew MD REQUESTING PHYSICIAN: Dr. Lowery. REASON FOR CONSULTATION: Severe multivessel coronary artery disease. HISTORY OF PRESENT ILLNESS: The patient is a very pleasant, 56-year-old male, who was referred to the emergency department by the [facility] here in town after he had presented with complaints of on and off chest pain that occur with and without activity. The chest pain has been going on for several months. The patient recently ran out of nitroglycerin and the chest pain is worsening in severity. In addition, complaints also are for decreased urinary output with dark urine being noted. While at the [facility], they noted the patient's renal panel to be concerning for acute kidney injury as well as hyperkalemia. Apparently, his potassium was 5.7, BUN 115, and creatinine 7.8. Upon his arrival to the emergency department, he was noted to have an abnormal EKG with T-wave inversion. Back in March of 2016, the patient was admitted as a non-STEMI. He did not undergo any intervention, i.e., catheterization secondary to having had a subdural hematoma after a fall. The patient underwent a ventriculostomy and was followed by Neurology. Cardiology at this point maximized his cardiac medications due to the bleed. The patient was supposed to follow with Cardiology as well as Neurology after discharge in March; however, was lost to follow up until today. The patient is being seen by Dr. Lowery for cardiology needs. He has not had much in the way of chest pain until today. He had not required any nitroglycerin and Neurology is evaluating him to ensure that he can have heparin. The patient's ejection fraction is estimated at 50% to 55%. He went down for cardiac catheterization today, November 20, 2016 with findings of severe multivessel coronary artery disease. This is to include mild left main disease, LAD occlusion, proximal to midportion 80%, distal portion 80%, diagonal at the ostial portion at 90%; circumflex midportion 100% in-stent restenosis; obtuse marginal #1 ostially at 50%, midportion 70%, and distal 80% PATIENT'S NAME: JAEL ROBLSE [facility] AGE: 56 Y [address] ROOM: [id number] [place], [place] [address] [facility] AD[facility] DATE: 11/10/2016 Consultation DISCHARGE DATE: FAMILY PHYSICIAN: PHYSICIAN, UNKNOWN ATTENDING PHYSICIAN: CHRIS FLORES to 90%. The RCA at the midportion is 80%. The posterior lateral vessel ostially at 80% to 90% and the PDA at 80% to 90%. Also ramus ostial/proximal at 80% to 90%. Given the severity of the disease, the patient is recommended for surgical revascularization. PAST MEDICAL HISTORY: Illnesses: Right subdural hematoma, status post fall; diastolic congestive heart failure; insulin-dependent diabetes mellitus; dyslipidemia; hypertension; alcohol-induced pancreatitis history. Surgeries: Ventriculostomy, surgical repair after a foot fracture. ALLERGIES: NO KNOWN DRUG ALLERGIES. SOCIAL HISTORY: The patient lives in [place], [place] with his son. He is single. He is deemed disabled secondary to the brain bleed and also due to his multiple hospitalizations over the last 2 years. 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 He has a fairly significant history of tobacco abuse, which includes 2 pack a day history for more than 40 years. He socially uses alcohol and he does smoke marijuana weekly. FAMILY HISTORY: His father had a history with lung cancer. He was a smoker. His mother had an intracranial bleed and he had an uncle with a stroke. MEDICATIONS: His home medications consist of: 1. Protonix 40 mg daily. 2. Metoprolol 75 mg b.i.d. 3. Keppra 500 mg b.i.d. 4. Magnesium oxide 400 mg daily. 5. Isosorbide 30 mg daily. 6. Levemir 28 units daily. 7. NovoLog insulin 10 units subcu t.i.d. via the FlexPen. 8. Furosemide 40 mg daily. 9. Lipitor 20 mg daily. 10. Amlodipine 10 mg daily. 11. Tylenol 325 mg q.6 hours p.r.n. It is unclear if he is compliant with these medications. REVIEW OF SYSTEMS: As per HPI. Pertinent positives are for a bout of chest pain that occurred PATIENT'S NAME: JAEL ROBLES [facility] AGE: 56 Y [address] ROOM: [address] [place], [place] [address] LOCATION: GPCU ADMIT DATE: 11/10/2016 Consultation DISCHARGE DATE: FAMILY PHYSICIAN: PHYSICIAN, UNKNOWN ATTENDING PHYSICIAN: CHRIS FLORES today after not having chest pain since admission. PHYSICAL EXAMINATION: VITAL SIGNS: Blood pressure is 160/78, pulse 56, respirations 15, temp 97.6, 93% on room air. Weight is 82.9 kg. Height is 157.48 cm. GENERAL: This is a very pleasant, 56-year-old male, lying flat in bed per the terms of his post catheterization. He is in no acute distress. He is Bengali speaking but does understand Trinidadian and we can communicate. His daughter is present. HEENT: Normocephalic. EOMI is intact. Conjunctivae clear. He is edentulous. LUNGS: Clear to auscultation to the anterior and bilaterally. CARDIOVASCULAR: Regular rate and rhythm. No murmur detected. ABDOMEN: Soft, nontender by 4 quadrants. Positive bowel sounds throughout. EXTREMITIES: No overt varicosities or edema. NEUROLOGIC: Alert and oriented. His strength is symmetrical. SKIN: No suspicious skin lesions. LABORATORY DATA: Magnesium 2.2. Phosphorus 3.5. Comprehensive metabolic panel, sodium 144, potassium 4.5, BUN 32, creatinine 3, the GFR 22. Liver function studies are within normal limits. Lipid profile, cholesterol 103, triglycerides 190, HDL 33, LDL 32. CBC, WBC of 6.4, hemoglobin 10.6, platelets 168. INR is 0.92. IMPRESSION: 1. Non-ST segment myocardial infarction. 2. Multivessel coronary artery disease requiring surgical revascularization. 3. Acute on chronic kidney failure. 4. Hypertension. 5. Insulin-dependent diabetes mellitus. RECOMMENDATIONS AND PLAN: Dr. De Los Santos reviewed the cardiac catheterization studies. Per review of the films, the patient will require 5-6 bypasses to include the LAD, diagonal, circumflex x2, PDA, and perhaps an acute marginal. This was explained to the patient and his daughter. The patient does agree to surgery. The risks and benefits were discussed. The discussion of the risks includes but were not limited to, bleeding, requiring transfusion or return to the operative suite, myocardial infarction, cerebrovascular accident, renal, and/or pulmonary failure. Also discussed were arrhythmias and infection as well as operative and postoperative mortality. Length of stay and restrictions thereafter were discussed. Also discussed possible need for skilled stay; however, the patient may do quite well otherwise. Nephrology is working with the patient to optimize the renal function. Neurology has been consulted as anticoagulation or antithrombotics will be desired. Also we would like their PATIENT'S NAME: JAEL ROBLES [facility] AGE: 56 Y [address] ROOM: [address] [place], [place] [address] [facility] AD[facility] DATE: 11/10/2016 Consultation DISCHARGE DATE: FAMILY PHYSICIAN: , JONATAN ATTENDING PHYSICIAN: CHRIS FLORES opinion on the need for Keppra. Surgical discussion also has been with Cardiology and Hospitalist Services. We all seem to be on the same page and we will go later this week to the operating room for procedure. We would like to thank Dr. Lowery for allowing us to participate in the care of this very pleasant gentleman. IVETTE GARCIA APRN FOR DO TYRONE REED/modl /[id number] d: 11/22/16 1123 t: 12/03/162044, CONSULTATION REPORT
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
--- NOTE | ~2016-11-10 | PUL ---
PATIENT'S NAME: JAEL ROBLES [facility] AGE: 56 Y [address] ROOM: [place] [address] [facility] AD[facility] DATE: 11/10/2016 Pulmonary DISCHARGE DATE: FAMILY PHYSICIAN: PHYSICIAN, UNKNOWN ATTENDING PHYSICIAN: CHRIS FLORES NAME OF PROCEDURE: Pulmonary Function Test DATE OF PROCEDURE: November 21, 2016 TECH: ANALIA Adam REASON FOR EXAM: Pre-surgical evaluation PROCEDURES PERFORMED: Spirometry with bronchodilator assessment. Measurement of maximum voluntary ventilation. Measurement of lung volumes. Measurement of diffusing capacity. RESULTS: Spirometry data shows pre bronchodilator FVC was 2.87 liters, 81% of predicted.; post bronchodilator FVC was 3.22 liters, 91% predicted; pre bronchodilator FEV1 was 2.29, 85% of predicted; post-bronchodilator FEV1 was 2.57 liters, 95% of predicted. FEV1/FVC 80%, 105% of predicted. FEF 25-75% is 2.5 liters/second, 106% of predicted. Maximum voluntary ventilation is 85 liters/minute, 73% of predicted. The above data improved significantly following an inhaled bronchodilator. Total lung capacity was 5.34 liters, 112% of predicted. Functional residual capacity was 2.99 liters, 116% of predicted. Residual volume was 2.21 liters, 123% of predicted. DLCO is 57%. The single breath alveolar volume was 3.99 liters, witch is a poor estimate of the total lung capacity. Flow volume loop pattern was normal. IMPRESSION: The above data and corresponding flow volume curve shows normal lung function with normal lung volumes, with moderate reduction in gas transfer. There was significant response to bronchodilator. Isolated reduction DLCO could be secondary to smoking, anemia, pulmonary vascular diorders etc. clinical correlation recommended. MD LUZ MAHER/abel /[id number] dtt: 11/23/16 1743 , MICA HANSNE dtd: 11/22/16 1115
[~2016-11-10 19:17] MED LIST changes: -ANTACID ULTRA400 MG PO; -ASPIRIN LO-DOSE81 MG PO; -CORDARONE,PACE200 MG PO; -COREG12.5 MG PO; -COZAAR50 MG PO; -LEVEMIR100 UNIT/1 SUB-Q; -MIRALAX17 GM PO; -NORCO 5-325 TA1 EACH PO; -NORVASC5 MG PO; -ONE TOUCH LANC1 EACH; -ONE TOUCH VERI1 EACH; -PRINIVIL (ZESTR20 MG PO
[2016-11-10 19:51] LABS: BASOPHIL % 0.4 %; EOSINOPHIL # 0.2 K/uL (0.0-0.5); EOSINOPHIL % 3.9 %; HEMATOCRIT 36.4 % (37.0-53.0); HEMOGLOBIN 12.4 g/dL (12.0-17.0); IMMATURE GRANULOCYTE % 0.5 %; LYMPHOCYTE # 0.7 K/uL (0.8-4.0); LYMPHOCYTE % 12.7 %; MCH 28.7 pg (27.0-34.0); MCHC 34.1 gm/dL (32.0-36.5); MCV 84.3 fl (83.0-98.0); MONOCYTE # 0.6 K/uL (0.0-1.0); MONOCYTE % 10.9 %; MPV 10.5 fl (9.4-12.4); NEUTROPHIL # (ANC) 4.1 K/uL (1.4-9.0); NEUTROPHIL % 71.6 %; NRBC % 0 /100WBC (0-0.00); PLATELET COUNT 192 K/uL (150-450); RBC 4.32 M/uL (4.00-6.00); RDW-CV 14.5 % (11.9-14.6); WBC 5.7 K/uL (4.0-11.0)
[2016-11-10 20:01] LABS: BILIRUBIN URINE NEGATIVE (NEGATIVE); BLOOD URINE 10 /UL (NEGATIVE); COLOR URINE YELLOW (YELLOW); GLUCOSE URINE 50 mg/dL (NEGATIVE); KETONE URINE NEGATIVE (NEGATIVE); LEUKOCYTES URINE NEGATIVE /UL (NEGATIVE); NITRITE URINE NEGATIVE (NEGATIVE); PROTEIN URINE 100 mg/dL (NEGATIVE); SPEC GRAVITY URINE 1.015 (1.003-1.035); TURBIDITY URINE CLEAR (CLEAR); UROBILINOGEN URINE NORMAL (NORMAL)
[2016-11-10 20:02] LABS: RBC URINE RARE #/HPF (NEGATIVE); WBC URINE RARE #/HPF (NEGATIVE)
[2016-11-10 20:03] LABS: AMORPHOUS URINE 1+ (NEGATIVE); BACTERIA URINE NEGATIVE (NEGATIVE); EPITHELIAL URINE 0-2 #/HPF (NEGATIVE)
[2016-11-10 20:08] LABS: ALBUMIN 3.5 gm/dL (3.5-5.0); ANION GAP 22.7 (10.0-19.0); CALCIUM 8.2 mg/dL (8.5-10.5); POTASSIUM 5.7 mMol/L (3.7-5.1); TOTAL PROTEIN 7.6 g/dL (6.0-8.4)
[2016-11-10 20:09] LABS: CREATININE 7.8 mg/dL (0.6-1.3); TOTAL BILIRUBIN 0.2 mg/dL (0.0-1.5)
[2016-11-11 00:40] LABS: BICARBONATE 8.1 mmol/L (18.0-23.0); PCO2 25 mmHg (35-45); PO2 91 mmHg (80-90)
[2016-11-11 02:58] LABS: ANION GAP 18.3 (10.0-19.0); CALCIUM 8.2 mg/dL (8.5-10.5); POTASSIUM 5.3 mMol/L (3.7-5.1)
[2016-11-11 04:07] LABS: MAGNESIUM 2.5 mg/dL (1.8-2.6)
[2016-11-11 07:31] LABS: CALCIUM 7.9 mg/dL (8.5-10.5)
[2016-11-11 07:34] LABS: ANION GAP 15.3 (10.0-19.0); CREATININE 6.2 mg/dL (0.6-1.3); POTASSIUM 4.3 mMol/L (3.7-5.1)
[2016-11-11 14:45] LABS: BASOPHIL % 0.5 %; EOSINOPHIL # 0.2 K/uL (0.0-0.5); EOSINOPHIL % 2.5 %; IMMATURE GRANULOCYTE % 0.2 %; LYMPHOCYTE # 0.7 K/uL (0.8-4.0); LYMPHOCYTE % 10.5 %; MCH 28.4 pg (27.0-34.0); MCHC 34.6 gm/dL (32.0-36.5); MCV 82.1 fl (83.0-98.0); MONOCYTE # 0.7 K/uL (0.0-1.0); MONOCYTE % 11.4 %; MPV 10.3 fl (9.4-12.4); NEUTROPHIL # (ANC) 4.8 K/uL (1.4-9.0); NEUTROPHIL % 74.9 %; NRBC % 0 /100WBC (0-0.00); PLATELET COUNT 154 K/uL (150-450); RBC 3.52 M/uL (4.00-6.00); RDW-CV 14.5 % (11.9-14.6); WBC 6.4 K/uL (4.0-11.0)
[2016-11-11 14:46] LABS: HEMATOCRIT 28.9 % (37.0-53.0)
[2016-11-11 15:00] LABS: INR - (THERAPEUTIC) 0.92 (0.92-1.07); PROTIME 9.7 SECONDS (9.8-11.4)
[2016-11-12 03:16] LABS: BASOPHIL % 0.3 %; EOSINOPHIL # 0.2 K/uL (0.0-0.5); EOSINOPHIL % 2.4 %; HEMATOCRIT 29.5 % (37.0-53.0); HEMOGLOBIN 10.1 g/dL (12.0-17.0); IMMATURE GRANULOCYTE % 0.4 %; LYMPHOCYTE # 0.7 K/uL (0.8-4.0); LYMPHOCYTE % 9.5 %; MCH 28.3 pg (27.0-34.0); MCHC 34.2 gm/dL (32.0-36.5); MCV 82.6 fl (83.0-98.0); MONOCYTE # 0.9 K/uL (0.0-1.0); MONOCYTE % 12.2 %; MPV 10.3 fl (9.4-12.4); NEUTROPHIL # (ANC) 5.7 K/uL (1.4-9.0); NEUTROPHIL % 75.2 %; NRBC % 0 /100WBC (0-0.00); PLATELET COUNT 161 K/uL (150-450); RBC 3.57 M/uL (4.00-6.00); RDW-CV 14.2 % (11.9-14.6); WBC 7.6 K/uL (4.0-11.0)
[2016-11-12 03:37] LABS: PHOSPHORUS 4.5 mg/dL (2.5-4.9); POTASSIUM 4.1 mMol/L (3.7-5.1)
[2016-11-12 03:38] LABS: ANION GAP 15.1 (10.0-19.0); CREATININE 4.8 mg/dL (0.6-1.3)
[2016-11-12 16:13] LABS: URINE CREAT VOL 5125 mL; URINE CREATININE - 24 HR 2716.3 mg/24HR (600-2500)
[2016-11-13 06:26] LABS: ALBUMIN 2.7 gm/dL (3.5-5.0); ANION GAP 13.3 (10.0-19.0); CALCIUM 8.2 mg/dL (8.5-10.5); CREATININE 3.6 mg/dL (0.6-1.3); PHOSPHORUS 3.3 mg/dL (2.5-4.9); POTASSIUM 4.3 mMol/L (3.7-5.1)
[2016-11-14 04:12] LABS: BASOPHIL % 0.3 %; EOSINOPHIL # 0.3 K/uL (0.0-0.5); EOSINOPHIL % 3.9 %; HEMATOCRIT 29.5 % (37.0-53.0); HEMOGLOBIN 10.1 g/dL (12.0-17.0); IMMATURE GRANULOCYTE % 0.3 %; LYMPHOCYTE % 14.8 %; MCH 28.3 pg (27.0-34.0); MCHC 34.2 gm/dL (32.0-36.5); MCV 82.6 fl (83.0-98.0); MONOCYTE # 0.8 K/uL (0.0-1.0); MONOCYTE % 11.7 %; MPV 10.5 fl (9.4-12.4); NEUTROPHIL # (ANC) 4.4 K/uL (1.4-9.0); NRBC % 0 /100WBC (0-0.00); PLATELET COUNT 141 K/uL (150-450); RBC 3.57 M/uL (4.00-6.00); RDW-CV 13.8 % (11.9-14.6); WBC 6.4 K/uL (4.0-11.0)
[2016-11-14 04:33] LABS: ALBUMIN 2.6 gm/dL (3.5-5.0); ANION GAP 13.3 (10.0-19.0); CALCIUM 8.5 mg/dL (8.5-10.5); CREATININE 3.3 mg/dL (0.6-1.3); PHOSPHORUS 2.9 mg/dL (2.5-4.9); POTASSIUM 4.3 mMol/L (3.7-5.1)
[2016-11-15 04:17] LABS: ALBUMIN 2.6 gm/dL (3.5-5.0); ANION GAP 13.1 (10.0-19.0); CALCIUM 8.2 mg/dL (8.5-10.5); CREATININE 2.9 mg/dL (0.6-1.3); PHOSPHORUS 3.5 mg/dL (2.5-4.9); POTASSIUM 4.1 mMol/L (3.7-5.1)
[2016-11-15 16:49] LABS: ALBUMIN 50.7 % (45.0-80.0); ALPHA 1 0.3 g/dL (0.1-0.4); ALPHA 2 0.8 g/dL (0.5-1.1); GAMMA 0.9 g/dL (0.6-1.5); PROTEIN, TOTAL 5.9 g/dL (6.2-8.2)
[2016-11-16 04:39] LABS: ALBUMIN 2.7 gm/dL (3.5-5.0); ANION GAP 12.1 (10.0-19.0); CALCIUM 8.4 mg/dL (8.5-10.5); CREATININE 2.8 mg/dL (0.6-1.3); PHOSPHORUS 2.8 mg/dL (2.5-4.9); POTASSIUM 4.1 mMol/L (3.7-5.1)
[2016-11-17 03:51] LABS: BASOPHIL % 0.5 %; EOSINOPHIL # 0.2 K/uL (0.0-0.5); EOSINOPHIL % 3.6 %; HEMATOCRIT 30.6 % (37.0-53.0); HEMOGLOBIN 10.1 g/dL (12.0-17.0); IMMATURE GRANULOCYTE % 0.5 %; LYMPHOCYTE % 15.9 %; MCH 28.1 pg (27.0-34.0); MONOCYTE # 0.8 K/uL (0.0-1.0); MONOCYTE % 11.8 %; MPV 10.4 fl (9.4-12.4); NEUTROPHIL # (ANC) 4.4 K/uL (1.4-9.0); NEUTROPHIL % 67.7 %; NRBC % 0 /100WBC (0-0.00); PLATELET COUNT 156 K/uL (150-450); RDW-CV 14.6 % (11.9-14.6); WBC 6.4 K/uL (4.0-11.0)
[2016-11-17 04:10] LABS: ALBUMIN 2.8 gm/dL (3.5-5.0); CALCIUM 8.6 mg/dL (8.5-10.5); CREATININE 2.8 mg/dL (0.6-1.3); PHOSPHORUS 3.2 mg/dL (2.5-4.9)
[2016-11-17] MEDS ORDERED: ANTACID ULTRA400 MG PO (12:06)
[2016-11-17] MEDS ORDERED: ASPIRIN LO-DOSE81 MG PO (12:06)
[2016-11-17] MEDS ORDERED: COREG12.5 MG PO (12:06)
[2016-11-17] MEDS ORDERED: PRINIVIL (ZESTR20 MG PO (12:07)
[2016-11-17] MEDS ORDERED: ALDACTONE25 MG PO (12:07)
[2016-11-17] MEDS ORDERED: COZAAR50 MG PO (12:11)
[2016-11-18 03:53] LABS: ALBUMIN 2.8 gm/dL (3.5-5.0); ANION GAP 14.2 (10.0-19.0); CALCIUM 8.7 mg/dL (8.5-10.5); CREATININE 2.8 mg/dL (0.6-1.3); PHOSPHORUS 3.2 mg/dL (2.5-4.9); POTASSIUM 4.2 mMol/L (3.7-5.1)
[2016-11-19 03:51] LABS: ALBUMIN 2.9 gm/dL (3.5-5.0); ANION GAP 12.3 (10.0-19.0); CALCIUM 8.6 mg/dL (8.5-10.5); CREATININE 3.1 mg/dL (0.6-1.3); PHOSPHORUS 3.5 mg/dL (2.5-4.9); POTASSIUM 4.3 mMol/L (3.7-5.1)
[2016-11-20 04:35] LABS: BASOPHIL % 0.3 %; EOSINOPHIL # 0.2 K/uL (0.0-0.5); EOSINOPHIL % 3.5 %; HEMATOCRIT 32.1 % (37.0-53.0); HEMOGLOBIN 10.6 g/dL (12.0-17.0); IMMATURE GRANULOCYTE % 0.5 %; LYMPHOCYTE # 1.2 K/uL (0.8-4.0); LYMPHOCYTE % 18.1 %; MCH 28.5 pg (27.0-34.0); MCV 86.3 fl (83.0-98.0); MONOCYTE # 0.8 K/uL (0.0-1.0); MONOCYTE % 12.7 %; MPV 10.3 fl (9.4-12.4); NEUTROPHIL # (ANC) 4.1 K/uL (1.4-9.0); NEUTROPHIL % 64.9 %; NRBC % 0 /100WBC (0-0.00); PLATELET COUNT 168 K/uL (150-450); RBC 3.72 M/uL (4.00-6.00); RDW-CV 14.9 % (11.9-14.6); WBC 6.4 K/uL (4.0-11.0)
[2016-11-20 04:41] LABS: INR - (THERAPEUTIC) 0.92 (0.92-1.07); PROTIME 9.7 SECONDS (9.8-11.4)
[2016-11-20 04:58] LABS: ANION GAP 14.5 (10.0-19.0); CALCIUM 9.1 mg/dL (8.5-10.5); POTASSIUM 4.5 mMol/L (3.7-5.1)
[2016-11-20 04:59] LABS: TOTAL BILIRUBIN 0.3 mg/dL (0.0-1.5)
[2016-11-21 03:21] LABS: ALBUMIN 2.9 gm/dL (3.5-5.0); ANION GAP 13.3 (10.0-19.0); CALCIUM 8.5 mg/dL (8.5-10.5); PHOSPHORUS 2.6 mg/dL (2.5-4.9); POTASSIUM 4.3 mMol/L (3.7-5.1)
[2016-11-21 15:22] LABS: BASOPHIL % 0.4 %; EOSINOPHIL # 0.2 K/uL (0.0-0.5); EOSINOPHIL % 2.9 %; HEMATOCRIT 32.7 % (37.0-53.0); HEMOGLOBIN 10.7 g/dL (12.0-17.0); IMMATURE GRANULOCYTE % 0.6 %; LYMPHOCYTE # 1.4 K/uL (0.8-4.0); MCH 28.8 pg (27.0-34.0); MCHC 32.7 gm/dL (32.0-36.5); MCV 87.9 fl (83.0-98.0); MONOCYTE # 0.9 K/uL (0.0-1.0); MONOCYTE % 13.1 %; MPV 10.5 fl (9.4-12.4); NEUTROPHIL # (ANC) 4.5 K/uL (1.4-9.0); NRBC % 0 /100WBC (0-0.00); PLATELET COUNT 193 K/uL (150-450); RBC 3.72 M/uL (4.00-6.00); RDW-CV 15.4 % (11.9-14.6); WBC 7.2 K/uL (4.0-11.0)
[2016-11-21 15:30] LABS: INR - (THERAPEUTIC) 0.94 (0.92-1.07); PROTIME 9.9 SECONDS (9.8-11.4)
[2016-11-22 08:09] LABS: ALBUMIN 3.3 gm/dL (3.5-5.0); ANION GAP 12.6 (10.0-19.0); CALCIUM 9.3 mg/dL (8.5-10.5); POTASSIUM 4.6 mMol/L (3.7-5.1)
[2016-11-22 08:12] LABS: CREATININE 3.2 mg/dL (0.6-1.3)
[2016-11-22 10:48] LABS: ALBUMIN 3.3 gm/dL (3.5-5.0); ANION GAP 16.1 (10.0-19.0); CALCIUM 9.1 mg/dL (8.5-10.5); CREATININE 3.4 mg/dL (0.6-1.3); PHOSPHORUS 3.2 mg/dL (2.5-4.9); POTASSIUM 5.1 mMol/L (3.7-5.1)
[2016-11-22 11:39] LABS: BICARBONATE 24.6 mmol/L (18.0-23.0); PCO2 38 mmHg (35-45); PO2 62 mmHg (80-90)
[2016-11-23 03:52] LABS: BASOPHIL % 0.5 %; EOSINOPHIL # 0.2 K/uL (0.0-0.5); EOSINOPHIL % 3.6 %; HEMATOCRIT 31.3 % (37.0-53.0); HEMOGLOBIN 10.2 g/dL (12.0-17.0); IMMATURE GRANULOCYTE % 0.5 %; LYMPHOCYTE # 1.3 K/uL (0.8-4.0); LYMPHOCYTE % 21.3 %; MCH 28.7 pg (27.0-34.0); MCHC 32.6 gm/dL (32.0-36.5); MCV 87.9 fl (83.0-98.0); MONOCYTE # 0.8 K/uL (0.0-1.0); MONOCYTE % 12.7 %; MPV 10.5 fl (9.4-12.4); NEUTROPHIL # (ANC) 3.8 K/uL (1.4-9.0); NEUTROPHIL % 61.4 %; NRBC % 0 /100WBC (0-0.00); PLATELET COUNT 194 K/uL (150-450); RBC 3.56 M/uL (4.00-6.00); RDW-CV 15.6 % (11.9-14.6); WBC 6.1 K/uL (4.0-11.0)
[2016-11-23 04:04] LABS: ALBUMIN 3.2 gm/dL (3.5-5.0); ANION GAP 14.7 (10.0-19.0); CALCIUM 8.8 mg/dL (8.5-10.5); CREATININE 3.2 mg/dL (0.6-1.3); PHOSPHORUS 3.3 mg/dL (2.5-4.9); POTASSIUM 4.7 mMol/L (3.7-5.1)
[2016-11-23 12:54] LABS: HEMATOCRIT 25.6 % (37.0-53.0); HEMOGLOBIN 8.4 g/dL (12.0-17.0); MCH 29.3 pg (27.0-34.0); MCHC 32.8 gm/dL (32.0-36.5); MCV 89.2 fl (83.0-98.0); MPV 10.5 fl (9.4-12.4); RBC 2.87 M/uL (4.00-6.00); RDW-CV 15.8 % (11.9-14.6); WBC 9.4 K/uL (4.0-11.0)
[2016-11-23 12:55] LABS: PLATELET COUNT 97 K/uL (150-450)
[2016-11-23 13:07] LABS: INR - (THERAPEUTIC) 1.24 (0.92-1.07); PTT 28 SECONDS (25-32)
[2016-11-23 13:36] LABS: ALPHA ANGLE 74 degrees; CLOTTING TIME 219 seconds
[2016-11-23 13:37] LABS: ALPHA ANGLE 75 degrees (70-81); CLOT FORMATION TIME 81 seconds; CLOTTING TIME 73 seconds (43-82); MAXIMUM CLOT FIRMNESS 61 mm; MAXIMUM CLOT FIRMNESS 65 mm (51-72); MAXIMUM LYSIS 0 %
[2016-11-23 13:52] LABS: PCO2 48 mmHg (35-45); PO2 116 mmHg (80-90)
[2016-11-23 14:00] LABS: BICARBONATE 23.1 mmol/L (18.0-23.0); PCO2 40 mmHg (35-45); PO2 131 mmHg (80-90)
[2016-11-23 14:01] LABS: POTASSIUM 4.7 mEq/L (3.7-5.1); SODIUM 141 mEq/L (135-145)
[2016-11-23 14:03] LABS: BICARBONATE 24.9 mmol/L (18.0-23.0); PCO2 48 mmHg (35-45); PO2 316 mmHg (80-90)
[2016-11-23 14:04] LABS: POTASSIUM 5.2 mEq/L (3.7-5.1); SODIUM 139 mEq/L (135-145)
[2016-11-23 14:08] LABS: BICARBONATE 26.4 mmol/L (18.0-23.0); PCO2 45 mmHg (35-45); PO2 214 mmHg (80-90)
[2016-11-23 14:09] LABS: POTASSIUM 6.3 mEq/L (3.7-5.1); SODIUM 138 mEq/L (135-145)
[2016-11-23 14:09] LABS: BICARBONATE 24.7 mmol/L (18.0-23.0); PCO2 48 mmHg (35-45); PO2 217 mmHg (80-90)
[2016-11-23 14:10] LABS: POTASSIUM 6.4 mEq/L (3.7-5.1); SODIUM 138 mEq/L (135-145)
[2016-11-23 14:10] LABS: PCO2 52 mmHg (35-45)
[2016-11-23 14:11] LABS: BICARBONATE 24.4 mmol/L (18.0-23.0); PO2 228 mmHg (80-90); POTASSIUM 5.9 mEq/L (3.7-5.1); SODIUM 140 mEq/L (135-145)
[2016-11-23 14:12] LABS: BICARBONATE 20.7 mmol/L (18.0-23.0); PCO2 43 mmHg (35-45); PO2 229 mmHg (80-90)
[2016-11-23 14:13] LABS: ANION GAP 15.1 (10.0-19.0); CREATININE 3.3 mg/dL (0.6-1.3)
[2016-11-23 14:13] LABS: POTASSIUM 5.2 mEq/L (3.7-5.1); SODIUM 140 mEq/L (135-145)
[2016-11-23 14:14] LABS: POTASSIUM 5.1 mMol/L (3.7-5.1)
[2016-11-24 02:32] LABS: BICARBONATE 22.1 mmol/L (18.0-23.0); PCO2 41 mmHg (35-45)
[2016-11-24 02:33] LABS: PO2 66 mmHg (80-90)
[2016-11-24 02:48] LABS: ALBUMIN 3.1 gm/dL (3.5-5.0); ANION GAP 13.6 (10.0-19.0); CALCIUM 8.5 mg/dL (8.5-10.5); CREATININE 3.7 mg/dL (0.6-1.3); PHOSPHORUS 4.1 mg/dL (2.5-4.9)
[2016-11-24 02:54] LABS: POTASSIUM 5.6 mMol/L (3.7-5.1)
[2016-11-24 03:41] LABS: HEMATOCRIT 27.1 % (37.0-53.0); HEMOGLOBIN 8.9 g/dL (12.0-17.0); MCH 29.2 pg (27.0-34.0); MCHC 32.8 gm/dL (32.0-36.5); MCV 88.9 fl (83.0-98.0); MPV 11.6 fl (9.4-12.4); RBC 3.05 M/uL (4.00-6.00); RDW-CV 16.6 % (11.9-14.6); WBC 10.8 K/uL (4.0-11.0)
[2016-11-25 06:12] LABS: ALBUMIN 2.7 gm/dL (3.5-5.0); ANION GAP 12.9 (10.0-19.0); CALCIUM 8.3 mg/dL (8.5-10.5); CREATININE 3.8 mg/dL (0.6-1.3); PHOSPHORUS 5.3 mg/dL (2.5-4.9); POTASSIUM 4.9 mMol/L (3.7-5.1)
[2016-11-26 08:27] LABS: BASOPHIL % 0.3 %; EOSINOPHIL # 0.1 K/uL (0.0-0.5); EOSINOPHIL % 0.7 %; HEMATOCRIT 30.4 % (37.0-53.0); HEMOGLOBIN 9.7 g/dL (12.0-17.0); IMMATURE GRANULOCYTE # 0.1 K/uL (0.0-0.3); IMMATURE GRANULOCYTE % 0.5 %; LYMPHOCYTE % 8.8 %; MCH 28.7 pg (27.0-34.0); MCHC 31.9 gm/dL (32.0-36.5); MCV 89.9 fl (83.0-98.0); MONOCYTE # 1.2 K/uL (0.0-1.0); MONOCYTE % 10.2 %; MPV 11.3 fl (9.4-12.4); NEUTROPHIL % 79.5 %; NRBC % 0.2 /100WBC (0-0.00); PLATELET COUNT 182 K/uL (150-450); RBC 3.38 M/uL (4.00-6.00); RDW-CV 16.7 % (11.9-14.6); WBC 11.3 K/uL (4.0-11.0)
[2016-11-26 09:40] LABS: ALBUMIN 2.7 gm/dL (3.5-5.0); ANION GAP 13.8 (10.0-19.0); CALCIUM 8.3 mg/dL (8.5-10.5); CREATININE 3.6 mg/dL (0.6-1.3); PHOSPHORUS 3.1 mg/dL (2.5-4.9); POTASSIUM 4.8 mMol/L (3.7-5.1)
[2016-11-27 03:31] LABS: ALBUMIN 2.8 gm/dL (3.5-5.0); ANION GAP 12.6 (10.0-19.0); CALCIUM 8.5 mg/dL (8.5-10.5); CREATININE 3.2 mg/dL (0.6-1.3); POTASSIUM 4.6 mMol/L (3.7-5.1)
[2016-11-28 05:42] LABS: ALBUMIN 2.9 gm/dL (3.5-5.0); ANION GAP 14.5 (10.0-19.0); CALCIUM 8.8 mg/dL (8.5-10.5); CREATININE 3.5 mg/dL (0.6-1.3); PHOSPHORUS 3.1 mg/dL (2.5-4.9); POTASSIUM 4.5 mMol/L (3.7-5.1)
[2016-11-29 05:31] LABS: ALBUMIN 2.9 gm/dL (3.5-5.0); ANION GAP 12.7 (10.0-19.0); CALCIUM 8.4 mg/dL (8.5-10.5); CREATININE 3.3 mg/dL (0.6-1.3); PHOSPHORUS 3.4 mg/dL (2.5-4.9); POTASSIUM 4.7 mMol/L (3.7-5.1)
[2016-11-30] MEDS ORDERED: CORDARONE,PACE200 MG PO (16:19)
[2016-11-30] MEDS ORDERED: NORVASC5 MG PO (16:20)
[2016-11-30] MEDS ORDERED: NOVOLOG100 UNIT/M SUB-Q (16:30)
[2016-11-30] MEDS ORDERED: LEVEMIR100 UNIT/1 SUB-Q (16:32)
[2016-11-30] MEDS ORDERED: KEPPRA500 MG PO (16:33)
[2016-11-30] MEDS ORDERED: MIRALAX17 GM PO (16:35)
[2016-11-30] MEDS ORDERED: NORCO 5-325 TA1 EACH PO (16:38)
[2016-11-30] MEDS ORDERED: ONE TOUCH VERI1 EACH (16:42)
[2016-11-30] MEDS ORDERED: ONE TOUCH LANC1 EACH (16:43)
== END 2016-11-30 17:20 | disposition disaster alternative care site (69) | DRG 981 ==
LOC: GMED 19:17 → GPCU 21:21 → GICU 11-23 12:13 → GPCU 11-24 17:15
PROVIDERS: Emergency Medicine; Family Medicine; Internal Medicine Interventional Cardiology; Internal Medicine Nephrology; Nurse Practitioner; Nurse Practitioner Women's Health; Thoracic Surgery (Cardiothoracic Vascular Surgery); ADMIT Internal Medicine
PROC: 3E033XZ Introduction of Vasopressor into Peripheral Vein, Percutaneous Approach (ICD-10-PCS; principal; 2016-11-10)
PROC: B246ZZZ Ultrasonography of Right and Left Heart (ICD-10-PCS; 2016-11-13)
PROC: B2111ZZ Fluoroscopy of Multiple Coronary Arteries using Low Osmolar Contrast (ICD-10-PCS; 2016-11-20)
PROC: 4A023N7 Measurement of Cardiac Sampling and Pressure, Left Heart, Percutaneous Approach (ICD-10-PCS; 2016-11-20)
PROC: 4A09XMZ Measurement of Respiratory Total Activity, External Approach (ICD-10-PCS; 2016-11-21)
PROC: 05H633Z Insertion of Infusion Device into Left Subclavian Vein, Percutaneous Approach (ICD-10-PCS; 2016-11-23)
PROC: B246ZZ4 Ultrasonography of Right and Left Heart, Transesophageal (ICD-10-PCS; 2016-11-23)
PROC: 03HB33Z Insertion of Infusion Device into Right Radial Artery, Percutaneous Approach (ICD-10-PCS; 2016-11-23)
PROC: 30233N1 Transfusion of Nonautologous Red Blood Cells into Peripheral Vein, Percutaneous Approach (ICD-10-PCS; 2016-11-23)
PROC: 0213099 Bypass Coronary Artery, Four or More Arteries from Left Internal Mammary with Autologous Venous Tissue, Open Approach (ICD-10-PCS; 2016-11-23)
DX: N17.9 Acute kidney failure, unspecified (principal); I50.33 Acute on chronic diastolic (congestive) heart failure; I21.4 Non-ST elevation (NSTEMI) myocardial infarction; J90 Pleural effusion, not elsewhere classified; E87.2 Acidosis; I24.9 Acute ischemic heart disease, unspecified; D62 Acute posthemorrhagic anemia; E11.21 Type 2 diabetes mellitus with diabetic nephropathy; E44.1 Mild protein-calorie malnutrition; I13.0 Hypertensive heart and chronic kidney disease with heart failure and stage 1 through stage 4 chronic kidney disease, or unspecified chronic kidney disease; I25.110 Atherosclerotic heart disease of native coronary artery with unstable angina pectoris; E11.22 Type 2 diabetes mellitus with diabetic chronic kidney disease; D63.1 Anemia in chronic kidney disease; E87.5 Hyperkalemia; E78.5 Hyperlipidemia, unspecified; I25.2 Old myocardial infarction; N18.3 Chronic kidney disease, stage 3 (moderate); Z68.32 Body mass index [BMI] 32.0-32.9, adult; I16.0 Hypertensive urgency; I48.0 Paroxysmal atrial fibrillation; Z79.4 Long term (current) use of insulin; E66.9 Obesity, unspecified; Z86.69 Personal history of other diseases of the nervous system and sense organs; K59.00 Constipation, unspecified
CPT/HCPCS: A9270; C9113; G0480; J0131; J0282; J0610; J0690; J1644; J1940; J1953; J2150; J2250; J2270; J2440; J2720; J3010; J3475; J3480; J3490; J7030; J7040; J7050; J7060; J7121; P9016; P9035; P9045; P9047

== ENCOUNTER → 2016-12-11 | Outpatient (CLI) | payer MEDICAID ==
[~2016-12-11] MED LIST changes: +ANTACID ULTRA400 MG PO; +ASPIRIN LO-DOSE81 MG PO; +CORDARONE,PACE200 MG PO; +COREG12.5 MG PO; +COZAAR50 MG PO; +LEVEMIR100 UNIT/1 SUB-Q; +MIRALAX17 GM PO; +NORCO 5-325 TA1 EACH PO; +NORVASC5 MG PO; +ONE TOUCH LANC1 EACH; +ONE TOUCH VERI1 EACH; +PRINIVIL (ZESTR20 MG PO
[2016-12-11 16:00] LABS: BASOPHIL % 0.5 %; EOSINOPHIL # 0.2 K/uL (0.0-0.5); EOSINOPHIL % 2.8 %; HEMATOCRIT 32.1 % (37.0-53.0); HEMOGLOBIN 10.2 g/dL (12.0-17.0); IMMATURE GRANULOCYTE % 0.3 %; LYMPHOCYTE # 0.9 K/uL (0.8-4.0); LYMPHOCYTE % 12.1 %; MCH 28.2 pg (27.0-34.0); MCHC 31.8 gm/dL (32.0-36.5); MCV 88.7 fl (83.0-98.0); MONOCYTE # 0.8 K/uL (0.0-1.0); MONOCYTE % 10.4 %; MPV 9.5 fl (9.4-12.4); NEUTROPHIL # (ANC) 5.8 K/uL (1.4-9.0); NEUTROPHIL % 73.9 %; NRBC % 0 /100WBC (0-0.00); RBC 3.62 M/uL (4.00-6.00); RDW-CV 16.2 % (11.9-14.6); WBC 7.8 K/uL (4.0-11.0)
[2016-12-11 16:01] LABS: PLATELET COUNT 390 K/uL (150-450)
[2016-12-11 16:17] LABS: ALBUMIN 3.2 gm/dL (3.5-5.0); CALCIUM 8.7 mg/dL (8.5-10.5); TOTAL BILIRUBIN 0.3 mg/dL (0.0-1.5); TOTAL PROTEIN 7.3 g/dL (6.0-8.4)
== END ==
LOC: LNHI 15:57
PROVIDERS: Thoracic Surgery (Cardiothoracic Vascular Surgery)
DX: I25.10 Atherosclerotic heart disease of native coronary artery without angina pectoris (principal); I12.9 Hypertensive chronic kidney disease with stage 1 through stage 4 chronic kidney disease, or unspecified chronic kidney disease; I34.0 Nonrheumatic mitral (valve) insufficiency; E78.4 Other hyperlipidemia; N18.3 Chronic kidney disease, stage 3 (moderate)